=== PATIENT | female | born 1970 | race Two or more races ===

== ENCOUNTER 2024-07-10 14:45 | Outpatient (AMB) | payer BC, SELFPAY ==
--- NOTE | 2024-07-10 14:52 | A.OFFPC_ITS ---
Intake Visit Reasons: INGOT CASTER- Est care Intake Note: New patient visit Facilities Maintenance Manager Required: No Tobacco use date assessed: 07/10/24 Dental Screening Dental Screen Date: 07/10/24 Did you have a dental visit in the last 12 months?: Yes Did you have a dental problem in the last 6 months where you did not have access to dental care?: No Was dental information given to patient?: Patient has dentist HPI HPI Comments History of Present Illness Details 54 year old female with a past medical h istory of migraine, IBS, depression, asthma, neck pain, abnormal tfts presenting for follow up Headaches: on imitrex 100mg prn Chronic pain: Interval improvement with weight loss. Was on mounjaro. Has seen physiatry, vascular and rheumatology IBS: on as needed hyoscyamine Asthma: stable on albuterol as needed anxiety: infrequent xanax use. Uses 1-2 prescriptions per year Preventive Colonoscopy 02/10/2021 Mammogram -sees die sinker Dr Hawkins. she says mammo is UTD ROS CONSTITUTIONAL: Denies weight loss, fever and chills. HEENT: Denies changes in vision and hearing. RESPIRATORY: Denies SOB and cough. CV: Denies palpitations and CP GI: Denies abdominal pain, nausea, vomiting and diarrhea. : Denies dysuria and urinary frequency. MSK: Denies new myalgia and joint pain. SKIN: Denies rash and pruritus. NEUROLOGICAL: Denies headache PSYCHIATRIC: Denies recent changes in mood. PHYSICAL EXAM: GENERAL: Alert and oriented x 3. NAD EYES: EOMI. Anicteric. HENT: Moist mucous membranes. No scleral icterus. No cervical lymphadenopathy. LUNGS: Clear to auscultation bilaterally. CARDIOVASCULAR: Regular rate and rhythm. No murmur. No JVD. ABDOMEN: Soft, non-tender +bs EXTREMITIES: No edema. Non-tender. SKIN: No rashes or lesions. Warm. NEUROLOGIC: No focal neurological deficits. CN II-XII grossly intact PSYCHIATRIC: Cooperative. 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 1. Little interest or pleasure in doing things: not at all 2. Feeling down, depressed, or hopeless: not at all 3. Trouble falling or staying asleep, or sleeping too much: not at all 4. Feeling tired or having little energy: not at all 5. Poor appetite or overeating: not at all 6. Feeling bad about yourself - or that you are a failure or have let yourself or your family down: not at all 7. Trouble concentrating on things, such as reading the newspaper or watching television: not at all 8. Moving or speaking so slowly that other people could have noticed. Or the opposite - being so fidgety or restless that you have been moving around a lot more than usual: not at all 9. Thoughts that you would be better off or of hurting yourself in some way: not at all Total score: 0 Depression Screening Interpretation: Negative Depression Screening Done: Yes 31265 - PHQ-9 Billing: Yes Source: Developed by Drs. Dao Henriquez, Brandi Villarreal, Jorge L Galindo and colleagues, with an educational conrado from [employer]. Thrive Questionnaire Date Thrive assessed: 06/13/24 I am a: Patient What is your living situation today?: I have a steady place to live Within the past 12 months, did the food you bought not last and you didn't have the money to get more?: Never true Within the past 12 months, did you worry whether your food would run out before you got money to buy more?: Never true Do you have trouble paying for medicines?: No Do you have trouble getting transportation to medical appointments?: No Do you have trouble paying your heating and electricity bill?: No Do you have trouble taking care of your child, family member or friend?: No Do you have trouble with day-to-day activities such as bathing, preparing meals, shopping, managing finances, etc.?: No Are you currently unemployed and looking for a job?: No Are you interested in more education?: No Please select the resources that you would like help with: None Currently or been in a relationship where the following occur: No concerns reported THRIVE Score: 0 AUDIT C Alcohol Use Questionnaire (AUDIT-C) 1. How often do you have a drink containing alcohol?: Monthly or less 2. How many drinks containing alcohol do you have on a typical day when you are drinking?: 1 or 2 3. How often do you have six or more drinks on one occasion?: Never Total Score: 1 DUNG-7 AMB Questionnaire DUNG-7 Feeling nervous, anxious, or on edge: 1 = Several days Not being able to stop or control worryin = Several days Worrying too much about different things: 1 = Several days Trouble relaxin = Several days Being so restless that it is hard to sit still: 1 = Several days Becoming easily annoyed or irritable: 0 = Not at all Feeling afraid as if something awful might happen: 0 = Not at all Total DUNG-7 score (0-4 normal; 5-9 mild; 10-14 moderate; 15-21 severe): 5 Source: Developed by Drs. Dao Henriquez, Brandi Villarreal, Jorge L Galindo and colleagues, with an educational conrado from [employer]. 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 Hypothyroidism type: due to Sathish's thyroiditis Irritable bowel syndrome, unspecified type K58.9 Irritable bowel syndrome type: unspecified Migraine without status migrainosus, not intractable, unspecified migraine type G43.909 Migraine type: unspecified Status migrainosus presence: without status migrainosus Intractability: not intractable Additional Codes PHQ-9 - 15746 - PHQ-9 Billing: Yes ([id number]) Assessment & Plan Assessment & Plan (1) Hypothyroid: Code(s): E03.9 - Hypothyroidism, unspecified Category: Medical Qualifiers: Hypothyroidism type: due to Sathish's thyroiditis Qualified Code(s): E06.3 - Autoimmune thyroiditis Plan: cllinically and biochemically euthyroid (2) IBS (irritable bowel syndrome): Code(s): K58.9 - Irritable bowel syndrome, unspecified Category: Medical Qualifiers: Irritable bowel syndrome type: unspecified Qualified Code(s): K58.9 - Irritable bowel syndrome, unspecified Plan: stable on FODMAP, prn levsin (3) Migraine: Code(s): G43.909 - Migraine, unspecified, not intractable, without status migrainosus Category: Medical Qualifiers: Migraine type: unspecified Status migrainosus presence: without status migrainosus Intractability: not intractable Qualified Code(s): G43.909 - Migraine, unspecified, not intractable, without status migrainosus Plan: continues prn imitrex. stable Orders: Orders Complete Blood Count Auto Diff 07/10/24 E03.9 - Hypothyroidism, unspecified, G43.909 - Migraine, unspecified, not intractable, without status migrainosus, K58.9 - Irritable bowel syndrome, unspecified, M32.9 - Systemic lupus erythematosus, unspecified, Z13.0 - Encounter for screening for diseases of the blood and blood-forming organs and certain disorders involving the immune mechanism, Z13.220 - Encounter for screening for lipoid disorders Lipid Panel 07/10/24 E03.9 - Hypothyroidism, unspecified, G43.909 - Migraine, unspecified, not intractable, without status migrainosus, K58.9 - Irritable bowel syndrome, unspecified, M32.9 - Systemic lupus erythematosus, unspecified, Z13.0 - Encounter for screening for diseases of the blood and blood-forming organs and certain disorders involving the immune mechanism, Z13.220 - Encounter for screening for lipoid disorders Hemoglobin A1c 07/10/24 E03.9 - Hypothyroidism, unspecified, G43.909 - Migraine, unspecified, not intractable, without status migrainosus, K58.9 - Irritable bowel syndrome, unspecified, M32.9 - Systemic lupus erythematosus, unspecified, Z13.0 - Encounter for screening for diseases of the blood and blood-forming organs and certain disorders involving the immune mechanism, Z13.220 - Encounter for screening for lipoid disorders Comprehensive Met. Panel 07/10/24 E03.9 - Hypothyroidism, unspecified, G43.909 - Migraine, unspecified, not intractable, without status migrainosus, K58.9 - Irritable bowel syndrome, unspecified, M32.9 - Systemic lupus erythematosus, unspecified, Z13.0 - Encounter for screening for diseases of the blood and blood-forming organs and certain disorders involving the immune mechanism, Z13.220 - Encounter for screening for lipoid disorders TSH reflex Free T4 07/10/24 E03.9 - Hypothyroidism, unspecified, G43.909 - Migraine, unspecified, not intractable, without status migrainosus, K58.9 - Irritable bowel syndrome, unspecified, M32.9 - Systemic lupus erythematosus, unspecified, Z13.0 - Encounter for screening for diseases of the blood and blood-forming organs and certain disorders involving the immune mechanism, Z13.220 - Encounter for screening for lipoid disorders Thyroid Peroxidase Antibodies 07/10/24 E03.9 - Hypothyroidism, unspecified, G43.909 - Migraine, unspecified, not intractable, without status migrainosus, K58.9 - Irritable bowel syndrome, unspecified, M32.9 - Systemic lupus erythematosus, unspecified, Z13.0 - Encounter for screening for diseases of the blood and blood-forming organs and certain disorders involving the immune mechanism, Z13.220 - Encounter for screening for lipoid disorders Medications: New alprazolam 0.5 mg PO BID 60 tabs 0RF 30 days Mounjaro (tirzepatide) 7.5 mg (0.5 mL) subcut QWEEK 6 mL 3RF NS sumatriptan succinate take 1 tab at onset of headache; if no relief, may repeat 1 tab after at least 2 hrs; max = 2 tabs/24 hrs PO 60 tabs 3RF 90 days Mounjaro (tirzepatide) 7.5 mg (0.5 mL) subcut QWEEK 6 mL 3RF NS
--- OUTSIDE RECORDS SUMMARY | 2024-07-10 16:54 | XMS_ITS ---
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 Comment on above: Acute bacterial sinu sitis (Primary Dx); Mild intermittent asthma with exacerbation Start: 10-27-2023 18:15-0400 End: 10-27-2023 19:33-0400 Office/outpatient new sf mdm 15 minutes Sprain of medial collateral ligament of left knee joint Zain Yeboah MD Work Phone: Monica Johnson PA-C Work Phone: [facility] Comment on above: Sprain of medial col lateral ligament of left knee, initial encounter (Primary Dx) N [facility] Immunizations Immunization Date Immunization Notes Care Provider Fa cility 10-08-2023 tetanus toxoid, redu lakeisha diphtheria toxoid, and acellular pertussis vaccine, adsorbed Harriet Goins APRN Work Phone: [facility] 05-06-2015 Influenza, split vir us, trivalent, injectable, contains preservative Harriet Goins APRN Work Phone: [facility] 03-28-2014 Influenza, split vir us, trivalent, injectable, contains preservative Harriet Devitt ANIMAL HUSBANDRY MANAGER Work Phone: [facility] 05-15-2013 Influenza, split vir us, trivalent, injectable, contains preservative Harriet Devitt ANIMAL HUSBANDRY MANAGER Work Phone: [facility] 12-05-2012 typhoid Vi capsular polysaccharide vaccine Harriet Devitt ANIMAL HUSBANDRY MANAGER Work Phone: [facility] 04-29-2011 Influenza, split vir us, trivalent, injectable, contains preservative Harriet Devitt ANIMAL HUSBANDRY MANAGER Work Phone: [facility] 04-29-2011 pneumococcal polysaccharide vaccine, 23 valent Harriet Devitt ANIMAL HUSBANDRY MANAGER Work Phone: [facility] 06-23-2010 tetanus toxoid, redu lakeisha diphtheria toxoid, and acellular pertussis vaccine, adsorbed Harriet Devitt ANIMAL HUSBANDRY MANAGER Work Phone: [facility] 05-05-2010 Influenza, split vir us, trivalent, injectable, contains preservative Harriet Devitt ANIMAL HUSBANDRY MANAGER Work Phone: [facility] 05-28-2008 Influenza, split vir us, trivalent, injectable, contains preservative Harriet Devitt ANIMAL HUSBANDRY MANAGER Work Phone: [facility] 07-08-2007 Influenza, split vir us, trivalent, injectable, contains preservative Harriet Devitt ANIMAL HUSBANDRY MANAGER Work Phone: [facility] 02-07-2004 hepatitis A and hepatitis B vaccine Harriet Devitt ANIMAL HUSBANDRY MANAGER Work Phone: [facility] 12-08-2003 hepatitis A and hepatitis B vaccine Harriet Devitt ANIMAL HUSBANDRY MANAGER Work Phone: [facility] 07-03-2002 hepatitis A and hepatitis B vaccine Harriet Devitt ANIMAL HUSBANDRY MANAGER Work Phone: [facility] 05-29-2002 hepatitis A and hepatitis B vaccine Harriet Devitt ANIMAL HUSBANDRY MANAGER Work Phone: [facility] 05-29-2002 typhoid Vi capsular polysaccharide vaccine Harriet Goins PAYAM Work Phone: [facility] Medications Current Medications Medication Drug Class(es) Dates Sig (Normalized) Sig (Original) [id number] 200 ACTUAT albuterol 0.09 MG/ACTUAT Metered Dose Inhaler (1 source) beta2-Adrenergic Agonist Start: 11-17-2023 Inhale 2 puffs 4 times daily (every 6 hours) as needed for wheezing or shortness of breath. amoxicillin 875 MG / clavulanate 125 MG Oral Tablet (1 source) Penicillin-class Antibacterial, beta Lactamase Inhibitor Start: 11-17-2023 End: 11-24-2023 take 1 tablet by mouth twice daily Take 1 tablet by mouth 2 (two) times a day. cholecalciferol 0.05 MG Oral Tablet (2 sources) Vitamin D Start: 10-27-2023 take 2 tablets by mouth once daily Take 2 tablets (4,000 Units total) by mouth daily. meloxicam 15 MG Oral Tablet (2 sources) Nonsteroidal Anti-inflammatory Drug Start: 10-27-2023 take 1 tablet by mouth once daily Take 1 tablet (15 mg total) by mouth daily. methocarbamol 500 MG Oral Tablet (2 sources) Muscle Relaxant Start: 10-27-2023 take 1 tablet by mouth twice daily as needed for muscle spasms Take 1 tablet (500 mg total) by mouth 2 (two) times a day as needed for muscle spasms. predniSONE 20 MG Oral Tablet (1 source) Corticosteroid Start: 11-17-2023 End: 11-22-2023 take 2 tablets by mouth once daily at mealtime Take 2 tablets (40 mg total) by mouth daily. With food. sumatriptan 25 MG Oral Tablet (2 sources) Serotonin-1b and Serotonin-1d Receptor Agonist take 4 tablets by mouth every two hours as needed Take 100 mg by mouth every 2 (two) hours as needed. 0.5 ML tirzepatide 10 MG/ML Auto-Injector (2 sources) Start: 08-10-2023 Mounjaro 5 MG/0.5ML pen-injector Payers Date Payer Normalized Payer [id number] Plan of Treatment Date Care Activity Detail Author Start: 10-07-2033 DTaP/Tdap/Td Vaccines (3 - Td or Tdap) DTaP/Tdap/Td Vaccines (3 - Td or Tdap) [facility] Start: 02-03-2024 Administration of influenza vaccine Influenza Vaccine [facility] Start: 03-05-2023 COVID-19 Vaccine () COVID-19 Vaccine () [facility] Start: 02-02-2023 Administration of influenza vaccine Influenza Vaccine [facility] Start: 2020 Hzv zoster vacc recombinant adjuvanted im njx Zoster (Shingles) Vaccine (1 of 2) [facility] Start: 2015 Screening for malignant neoplasm of colon Colonoscopy [facility] Start: 2010 Mammography Mammogram [facility] Start: 1991 Microscopic observation [Identifier] in Cervix by Cyto stain Pap Smear (Ages 21-65) [facility] Start: 1989 DTaP/Tdap/Td Vaccines (1 - Tdap) DTaP/Tdap/Td Vaccines (1 - Tdap) [facility] Start: 1989 Hepatitis B Vaccines (1 of 3 - 19+ 3-dose series) Hepatitis B Vaccines (1 of 3 - 19+ 3-dose series) [facility] Start: 1983 HIV Screening HIV Screening [facility] Start: 1970 Hepatitis C screening Hepatitis C Virus Screening [facility] Problems Active Problems Problem Classification Problem Date Last Recorded Documented Date Chronic Condition Indicator Provider Asthma (1 source) Exacerbation of intermittent asthma; Translations: [Mild intermittent asthma with (acute) exacerbation] 11-17-2023 [id number]-[id number] estella Harriet Goins APRN Work Phone: Adjustment disorders (1 source) Adjustment disorder with anxious mood; Translations: [Adjustment disorder with anxiety] 11-17-2023 Chronic Harriet Goins APRN Work Phone: Asthma (1 source) Asthma; Translations: [Unspecified asthma, uncomplicated] 11-17-2023 Chronic Harriet Goins APRN Work Phone: Headache; including migraine (2 sources) Cluster headache; Translations: [Cluster headache syndrome, unspecified, not intractable] 11-17-2023 Chronic Harriet Goins APRN Work Phone: Osteoarthritis (1 source) Arthritis; Translations: [Unspecified osteoarthritis, unspecified site] 11-17-2023 Chronic Harriet Goins APRN Work Phone: Other gastrointestinal disorders (1 source) Irritable bowel syndrome; Translations: [Irritable bowel syndrome without diarrhea] 11-17-2023 Chronic Harriet Goins APRN Work Phone: Other inflammatory condition of skin (1 source) Lupus erythematosus; Translations: [Discoid lupus erythematosus] 11-17-2023 Chronic Harriet Goins APRN Work Phone: Other upper respiratory disease (1 source) Seasonal allergy; Translations: [Other seasonal allergic rhinitis] 11-17-2023 Chronic Harriet Goins APRN Work Phone: Other lower respiratory disease (1 source) H/O: pneumonia; Translations: [Personal history of pneumonia (recurrent)] 11-17-2023 Not applicable Harriet Goins APRN Work Phone: Other screening for suspected conditions (not mental disorders or infectious disease) (1 source) Imaging of biliary tract abnormal; Translations: [Abnormal findings on diagnostic imaging of liver and biliary tract] 11-17-2023 Not applicable Harriet Goins APRN Work Phone: Past or Other Problems Problem Classification Problem Date Last Recorded Documented Date Chronic Condition Indicator Provider Mycoses (1 source) Candidiasis of vagina; Translations: [Acute candidiasis of vulva and vagina] 11-17-2023 Episodic Harriet Goins ANIMAL HUSBANDRY MANAGER Work Phone: Other circulatory disease (1 source) Disorder of cardiovascular system; Translations: [Unspecified disorder of circulatory system] 11-17-2023 Episodic Harriet Goins APRN Work Phone: Other upper respiratory infections (1 source) Acute bacterial sinusitis; Translations: [Acute sinusitis, unspecified] 11-17-2023 Episodic Harriet Goins APRN Work Phone: Sprains and strains (1 source) Sprain of medial collateral ligament of left knee joint; Translations: [Sprain of medial collateral ligament of left knee, initial encounter] 10-27-2023 Episodic Monica Fletcher Johnson PA-C Work Phone: Social History Date Type Detail Facility Start: 1970 Sex Assigned At Not on file [facility] Tobacco smoking stat [facility] Tobacco smoking consumption unknown [facility] Gender identity Not on file [facility] Vital Signs Date Time Vital Sign Value Performing Clinician Facility 11-17-2023 09:55-0400 Body temperature 97.5 [degF] Harriet Goins APRN Work Phone: [facility] 11-17-2023 09:55-0400 BP (Blood pressure) 128/85mm[Hg] Harriet Goins APRN Work Phone: [facility] 11-17-2023 09:55-0400 Heart rate 83 /min Harriet Goins APRN Work Phone: [facility] 11-17-2023 09:55-0400 SaO2% (BldA) [Mass fraction] 96 % Harriet Goins APRN Work Phone: [facility] 10-27-2023 19:11-0400 Body height 165.1 cm Monica Johnson PA-C Work Phone: [facility] 10-27-2023 19:11-0400 Body mass index (BMI) [Ratio] 28.62 kg/m2 Monica Johnson PA-C Work Phone: [facility] 10-27-2023 19:11-0400 Body temperature 97.59 [degF] Monica Johnson PA-C Work Phone: [facility] 10-27-2023 19:11-0400 Body weight 78.02 kg Monica Johnson PA-C Work Phone: [facility] 10-27-2023 19:11-0400 BP (Blood pressure) 163/85mm[Hg] MonicaPPDai PA-C Work Phone: [facility] 10-27-2023 19:11-0400 Heart rate 64 /min MonicaPPDai PA-C Work Phone: [facility] 10-27-2023 19:11-0400 Respiratory rate 16 /min [employer] PA-C Work Phone: [facility] 10-27-2023 19:11-0400 SaO2% (BldA) [Mass fraction] 100 % [employer] PA-C Work Phone: [facility] History of Present illness Narrative 11-17-2023 Harriet Goins APRN - 11/17/2023 10:02 AM EDT Note Date & Type Note Facility 11-17-2023 History of Presen t illness Narrative Assessment & Plan Peggy was seen today for nasal congestion. Diagnoses and all orders for this visit: Acute bacterial sinusitis - amoxicillin-clavulanate (AUGMENTIN) 875-125 MG per tablet; Take 1 tablet by mouth 2 (two) times a day. Mild intermittent asthma with exacerbation - predniSONE (DELTASONE) 20 MG tablet; Take 2 tablets (40 mg total) by mouth daily. With food. - albuterol (PROVENTIL HFA; VENTOLIN HFA) 108 (90 Base) MCG/ACT inhaler; Inhale 2 puffs 4 times daily (every 6 hours) as needed for wheezing or shortness of breath. Medical Decision Making and Data Synthesis: Acute bacterial sinusitis with mild intermittent asthma exacerbation. Augmentin as directed. Prednisone and albuterol as directed. Patient was advised to continue with your nebulizers as needed. Steamy showers, may use [id number]-[id number] decongestant as needed as well. If there is no improvement after 7 days or any new or worsening symptoms please be reevaluated. Communication barriers and lifestyle preferences were addressed with the patient and/or family . The care plan including medications and self-management goals were reviewed to the best of the Patient and/or family's ability. All questions and concerns were answered. Patient and/or family verbalized understanding of the plan of care. Subjective Peggy Brewster is a 53 y.o. female HPI Chief Complaint: congestion and cough Location: head and chest Duration: 10 days, worse in last 5 Context: acute Severity: moderate Other Pertinent History: Patient has a history of sinus infections, she feels like she has a sinus infection at this time. Symptoms started out mild before getting worse in the last 5 days. She has been treating with [id number]-[id number] medications with no significant improvement. She is now experiencing a cough as well as tightness in the chest, she does have a history of asthma, does have an albuterol inhaler which is old, she does have nebulizers which have been helpful, she was able to use those last night and today with some improvement in the chest, but unfortunately the head congestion is continued. She feels a lot of fullness in her face above and below the eyes as well as in the ears. Postnasal drip, throat clearing, and significant fatigue. No fever, body aches, or muscle aches. No rapid breathing or rapid heart rate noted. History reviewed. No pertinent past medical history. History reviewed. No pertinent surgical history. History reviewed. No pertinent family history. Review of Systems: All other systems reviewed and are negative except where documented below: Cardiovascular: No Chest pain Pulmonary: No SOB Gastrointestinal: No Vomiting; No Diarrhea Constitutional: No Fever Objective Vitals: 11/17/23 0955 BP: 128/85 Pulse: 83 Temp: 97.5 ?F (36.4 ?C) SpO2: 96% Vital signs reviewed. Constitutional: Well-appearing, in no apparent respiratory distress. Does not appear toxic Eyes: Conjunctivae Clear, No Icterus Ear, Nose, Mouth, Throat: Bilateral EACs are nonerythemic. Bilateral TMs pearly treviño with good light reflex. External nose is grossly normal to inspection. Nares are congested bilaterally. There is tenderness with palpation over the frontal maxillary sinuses. Oral mucosa is moist and pink. Posterior oropharynx is erythemic, there is postnasal drip visualized. No WEATHER CLERK. Uvula is midline. Neck: Supple, no nuchal signs, No cervical lymphadenopathy, Cardiovascular: Normal S1, S2. No extra heart sounds. Respiratory: Breath sounds clear and equal bilaterally, no wheezes, rales, or rhonchi. Nonproductive cough evident during exam. Gastrointestinal: Soft and No tenderness Skin: Normal for age and race, grossly normal temperature and turgor. No acute rash. Neurologic: Alert and appropriate, no apparent acute deficits. Normal gait Psychiatric: Mood and manner are appropriate. Grooming and personal hygiene are appropriate. No results found for this or any previous visit. Harriet Goins APRN 11/17/23 10:02 AM documented in this encounter [facility] History of Present illness Narrative 10-27-2023 Monica Johnson PA-C - 10/27/2023 7:44 PM EDT Note Date & Type Note Facility 10-27-2023 History of Presen t illness Narrative [address] [facility] [address] [id number] Encounter Date: 10/27/23 Assessment & Plan 1. Sprain of medial collateral ligament of left knee, initial encounter - Amb Referral to Orthopedic Surgery - Vitamin D3 (CHOLECALCIFEROL) 50 MCG (2000 UT) tablet; Take 2 tablets (4,000 Units total) by mouth daily. Dispense: 30 tablet; Refill: 3 - methocarbamol (ROBAXIN) 500 MG tablet; Take 1 tablet (500 mg total) by mouth 2 (two) times a day as needed for muscle spasms. Dispense: 60 tablet; Refill: 0 - meloxicam (MOBIC) 15 MG tablet; Take 1 tablet (15 mg total) by mouth daily. Dispense: 30 tablet; Refill: 0 1. Sprain of medial collateral ligament of left knee, initial encounter - Amb Referral to Orthopedic Surgery - Vitamin D3 (CHOLECALCIFEROL) 50 MCG (2000 UT) tablet; Take 2 tablets (4,000 Units total) by mouth daily. Dispense: 30 tablet; Refill: 3 - methocarbamol (ROBAXIN) 500 MG tablet; Take 1 tablet (500 mg total) by mouth 2 (two) times a day as needed for muscle spasms. Dispense: 60 tablet; Refill: 0 - meloxicam (MOBIC) 15 MG tablet; Take 1 tablet (15 mg total) by mouth daily. Dispense: 30 tablet; Refill: 0 Impression: Left knee MCL sprain Plan: Above listed pathology discussed with patient in detail. Questions asked and answered. Recommended prescriptions as above. Hinged knee brace provided for support stability and comfort. Patient is referred to [facility] for radiographic workup, evaluation and definitive treatment plan. X-ray not available in center at this time. Referral and Follow-up Referral: [facility]-Dr. Clark Timing: Patient to call tomorrow for an appointment in the next week If an orthopedic consultation is recommended or a follow-up appointment has been made, the patient may call the referral practice for more immediate care if issues arise prior to this appointment. Alternatively, if the referral practice is unable to accommodate a more urgent concern the patient is encouraged to re-visit the urgent care for reassessment. History of Present Illness: Peggy Brewster is a 53 y.o. female who presents today in the Urgent Care Clinic for evaluation of Chief Complaint Patient presents with Other Patient fell last and has injury to left leg around knee area. Can bear weight but discomfort; pain 8/10 with walking. . Patient describes onset of symptoms as: Last while on a cruise. The mechanism of injury is reported as: Patient states she was dancing on a pool deck, slipped and fell twisting her left knee. She describes a valgus type injury. She had immediate discomfort and pain with weightbearing. Another individual helped her to stand. Since then she has had pain and swelling about the medial aspect of the knee. Pain aggravated by weightbearing activities and stairs. She denies numbness or tingling. Denies calf pain or shortness of breath. Denies previous difficulty with her left knee. Has noted swelling. Has tried lidocaine cream and ice which has helped her symptoms somewhat. This is her first medical evaluation of her injury. ROS: Denies fevers, chills, sweats. Past Medical History History reviewed. No pertinent past medical history. History reviewed. No pertinent surgical history. History reviewed. No pertinent family history. Medication List Current Outpatient Medications: Mounjaro 5 MG/0.5ML pen-injector, , Disp: , Rfl: SUMAtriptan (IMITREX) 25 MG tablet, Take 100 mg by mouth every 2 (two) hours as needed., Disp: , Rfl: meloxicam (MOBIC) 15 MG tablet, Take 1 tablet (15 mg total) by mouth daily., Disp: 30 tablet, Rfl: 0 methocarbamol (ROBAXIN) 500 MG tablet, Take 1 tablet (500 mg total) by mouth 2 (two) times a day as needed for muscle spasms., Disp: 60 tablet, Rfl: 0 Vitamin D3 (CHOLECALCIFEROL) 50 MCG (2000 UT) tablet, Take 2 tablets (4,000 Units total) by mouth daily., Disp: 30 tablet, Rfl: 3 Allergies No Known Allergies Physical Exam Patient is a well-developed female in no acute distress. Alert & oriented x 3. Mood and affect appropriate. Gait antalgic to the left. Vitals: 10/27/23 1911 BP: (!) 163/85 Pulse: 64 Resp: 16 Temp: 97.6 ?F (36.4 ?C) TempSrc: Oral SpO2: 100% Weight: 78 kg (172 lb) Height: 1.651 m (5' 5 ) Ortho Exam Examination of the left knee reveals minimal intra-articular effusion. No erythema or increased warmth. Ecchymosis noted about the medial aspect of the knee. Mild valgus alignment appreciated on the left with neutral alignment of the knee noted on the right. Tenderness to palpation is found chiefly about the course of the MCL and posterior medial Andrew joint line. Patient does have mild laxity with valgus stress testing. She has no tenderness to palpation about the patella or lateral Andrew joint line. Extensor mechanism intact. No posterior knee pain. No instability with varus or AP stress. Negative Lubna's. Knee range of motion supple and nonirritable with no signs of infection. 1+ retropatellar crepitus noted. Calf supple and nontender with no evidence of DVT. Mild calf and pedal edema noted. Neuro vastly intact with intact DP pulses and sensation to light touch. 5 out of 5 dorsiflexion and plantarflexion strength. Imaging / Data Review No x-rays were ordered and obtained in Center today No results found. Procedure(s) Hinged knee brace provided for support, stability and comfort may remove for showers and sleeping. Patient to wear brace while ambulatory. Monica Johnson PA-C 10/27/23 7:44 PM documented in this encounter [facility] Evaluation note Note Date & Type Note Facility Evaluation note Diagnosis Acute bacterial sinusitis- Primary Acute sinusitis, unspecified Mild intermittent asthma with exacerbation Unspecified asthma, with exacerbation documented in this encounter [facility] Evaluation note Note Date & Type Note Facility Evaluation note Diagnosis Sprain of medial collateral ligament of left knee, initial encounter- Primary documented in this encounter [facility] Reason for visit Narrative Note Date & Type Note Facility Reason for visit Narrative Reason Comments Nasal Congestion Sore throat, cough f or 5 days [facility] Reason for visit Narrative Note Date & Type Note Facility Reason for visit Narrative Reason Comments Other Patient fell last and has injury to left leg around knee area. Can bear weight but discomfort; pain /10 with walking. [facility] Reason for Referral Specialty Diagnoses / Procedures Referred By Yany guallpa Referred To Contact Surgery, Orthopedic Diagnoses Sprain of medial collateral ligament of left knee, initial encounter Monica Johnson PA-C [address] [place] [address] Kevan Clark MD [address] [place] [id number] Referral ID Status Reason Start Date Expiration Date Visits Requested Visits Authorized [id number] Authorized Specialty Services Required 10/27/2023 10/27/2024 1 1 Additional Source Comments Care Teams (unrecognized sec tion and content) Hot Press Operator Relationship Specialty Start Date End Date Enid Flannery MD [address] [place] [address] PCP - General Internal Medicine 10/27/23 Hot Press Operator Relationship Specialty Start Date End Date Enid Flannery MD [address] [place] [address] PCP - General Internal Medicine 10/27/23 This clinical document has been generated using [employer] software that has been certified by the Office of the National Coordinator for Health Information Technology (ONC 15.99.04.3023.Diam.[id number]) and the National Committee for Motion Picture Projectionist Apprentice (NCQA, as an eMeasure certified technology). FOR RECORDS PERTAINING TO PATIENTS WHO ARE OR HAVE BEEN ENROLLED IN A CHEMICAL DEPENDENCY/SUBSTANCEABUSE PROGRAM, SOME INFORMATION MAY BE OMITTED. This clinical summary was aggregated from multiple sources. Caution should be exercised in using it in the provision of clinical care. This summary normalizes information from multiple sources, and as a consequence, information in this document may materially change the coding, format and clinical context of patient data. In addition, data may be omitted in some cases. CLINICAL DECISIONS SHOULD BE BASED ON THE PRIMARY CLINICAL RECORDS. [employer] provides no warranty or guarantee of the accuracy or completeness of information in this document.The following information is based on time limited clinical information
--- OUTSIDE RECORDS SUMMARY | 2024-07-10 16:54 | XMS_ITS ---
Author Name [facility] Organization Unknown History of Medication Use Medication Directions Dispensed Refills Start Date End Date Stat us albuterol (PROVENTIL HFA; VENTOLIN HFA) 108 (90 Base) MCG/ACT inhaler Inhale 2 puffs 4 times daily (every 6 hours) as needed for wheezing or shortness of breath. 11/19/2023 active predniSONE (DELTASONE) 20 MG tablet Take 2 tablets (40 mg total) by mouth daily. With food. 11/19/2023 active amoxicillin-clavulanat e (AUGMENTIN) 875-125 MG per tablet Take 1 tablet by mouth 2 (two) times a day. 11/19/2023 active Vitamin D3 (CHOLECALCIFEROL) 50 MCG (2000 UT) tablet Take 2 tablets (4,000 Units total) by mouth daily. 10/31/2023 active methocarbamol (ROBAXIN) 500 MG tablet Take 1 tablet (500 mg total) by mouth 2 (two) times a day as needed for muscle spasms. 10/31/2023 active Mounjaro 5 MG/0.5ML pen-injector 10/31/2023 active meloxicam (MOBIC) 15 MG tablet Take 1 tablet (15 mg total) by mouth daily. 10/31/2023 active SUMAtriptan (IMITREX) 25 MG tablet Take 100 mg by mouth every 2 (two) hours as needed. 10/31/2023 active Problems Problem Status Onset Date Problem Type Date of Resolution Source Abnormal gall bladder diagnostic imaging active 2023-11-17 ProblemAct [facility] Arthritis active 2023-11-17 ProblemAct [facility] Circulation problem active 2023-11-17 ProblemAct [facility] Mild intermittent asthma with exacerbation active EncounterDiagnosisAct [facility] Cluster headaches active 2023-11-17 ProblemAct [facility] Vaginal candidiasis active 2023-11-17 ProblemAct [facility] Acute bacterial sinusitis active EncounterDiagnosisAct [facility] Adjustment disorder with anxious mood active 2023-11-17 ProblemAct [facility] Lupus erythematosus active 2023-11-17 ProblemAct [facility] Migraine headache active 2023-11-17 ProblemAct [facility] Irritable bowel syndrome active 2011-04-29 ProblemAct [facility] History of pneumonia active 2023-11-17 ProblemAct [facility] Asthma active 2023-11-17 ProblemAct [facility] Seasonal allergies active 2023-11-17 ProblemAct [facility] Immunizations Vaccine Date Source Lot Number Status Influenza Inactivated/Split Preservative Free IM 04/29/2011 [facility] [id number] completed Influenza Inactivated/Split Preservative Free IM 05/05/2010 [facility] [id number] completed Typhoid Inactivated 12/05/2012 [facility] [id number] compl eted Influenza Inactivated/Split Preservative Free IM 05/15/2013 [facility] [id number] completed Influenza Inactivated/Split Preservative Free IM 05/06/2015 [facility] [id number] completed Hep A / Hep B 05/29/2002 [facility] [id number] completed Hep A / Hep B 02/07/2004 [facility] [id number] completed Influenza Inactivated/Split Preservative Free IM 03/28/2014 [facility] [id number] completed Influenza Inactivated/Split Preservative Free IM 07/08/2007 [facility] [id number] completed Influenza Inactivated/Split Preservative Free IM 05/28/2008 [facility] [id number] completed Pneumococcal Polysaccharide 23-Valent 04/29/2011 [facility] [id number] completed Tdap 10/08/2023 [facility] [id number] completed Hep A / Hep B 12/08/2003 [facility] UNK completed Tdap 06/23/2010 [facility] [id number] completed Hep A / Hep B 07/03/2002 [facility] [id number] completed Typhoid Inactivated 05/29/2002 [facility] [id number] compl eted
== END 2024-07-10 15:27 | disposition home or self-care (01) ==
PROVIDERS: PCP Internal Medicine; Visit Provider Internal Medicine
DX: E06.3 Autoimmune thyroiditis (principal); K58.9 Irritable bowel syndrome, unspecified; G43.909 Migraine, unspecified, not intractable, without status migrainosus

== ENCOUNTER → 2024-07-10 14:45 | Outpatient (BNVA) | payer BC, SELFPAY | PROVIDERS: PCP Internal Medicine; Visit Provider Internal Medicine | DX: E06.3 Autoimmune thyroiditis (principal); K58.9 Irritable bowel syndrome, unspecified; G43.909 Migraine, unspecified, not intractable, without status migrainosus | CPT/HCPCS: 96127 ==

== ENCOUNTER 2024-07-10 15:46 | Outpatient (REF) | payer BC, SELFPAY ==
[2024-07-10 17:42] LABS: MANUAL DIFF FLAG NO
[2024-07-10 17:55] LABS: Basophils Absolute Auto 0.1 X10*3/uL (0.0-0.2); Basophils Percent Auto 1.2 % (0-2); Eosinophils Absolute Auto 0.1 X10*3/uL (0.0-0.4); Hematocrit 39.8 % (37.0-47.0); Hemoglobin 13.1 g/dl (12.0-16.0); Imm Gran Abs Auto 0.01 X10*3/uL (0.00-0.03); Imm Gran Pct Auto 0.2 % (0.0-0.4); Lymphocytes Absolute Auto 2.2 X10*3/uL (1.2-4.9); Lymphocytes Percent Auto 44.1 % (20-40); Mean Corpuscular HGB Conc 32.9 g/dl (31.0-35.0); Mean Corpuscular Hemoglobin 29.9 pg (27.0-33.0); Mean Corpuscular Volume 90.9 fL (80.0-98.0); Mean Platelet Volume 11.4 fL (9.4-12.3); Monocytes Absolute Auto 0.4 X10*3/uL (0.1-1.2); Monocytes Percent Auto 7.3 % (2-11); Neutrophils Absolute Auto 2.3 x10*3/uL (2.0-8.3); Neutrophils Percent Auto 46.2 % (45-73); Platelet Count 256 X10*3/uL (160-400); Red Blood Count 4.38 X10*6/uL (4.20-5.50); Red Cell Distribution Width 12.1 % (11.0-16.0); White Blood Count 5.1 X10*3/uL (4.8-10.8)
[2024-07-10 17:59] LABS: Estimated Average Glucose 100 mg/dL; Hemoglobin A1C 112.8282 umol/L; Hemoglobin A1c % 5.1 % (<6.0); Total Hemoglobin (HGBA1C) 3460.5478 umol/L
[2024-07-10 18:18] LABS: Alanine Aminotransferase 22 U/L (0-31); Albumin Level 4.2 g/dL (3.5-5.0); Alkaline Phosphatase 63 U/L (39-117); Anion Gap 9 (12-20); Aspartate Amino Transferase 25 U/L (5-31); Bilirubin Total 0.4 mg/dL (0.0-1.0); Blood Urea Nitrogen 7 mg/dL (9-16); Calcium 8.5 mg/dL (8.4-10.2); Carbon Dioxide 30 mmol/L (22-29); Chloride 105 mmol/L (96-108); Cholesterol 149 mg/dL (<200); Estimated Glomerular Filt Rate > 60; Glucose Random 88 mg/dL (60-115); HDL Cholesterol 56 mg/dL (>40); LDL Cholesterol Calculated 79 mg/dL (<100); Potassium 3.3 mmol/L (3.3-5.1); Sodium 141 mmol/L (135-145); Total Protein 7.4 g/dL (6.5-8.0); Triglycerides 72 mg/dL (<150)
[2024-07-11 10:49] LABS: Thyroid Peroxidase Antibodies 7 IU/mL (<9)
== END 2024-07-10 15:47 | disposition home or self-care (01) ==
LOC: HO.WFDLDS 15:46
PROVIDERS: Visit Provider Internal Medicine
DX: Z13.220 Encounter for screening for lipoid disorders (principal); E03.9 Hypothyroidism, unspecified; M32.9 Systemic lupus erythematosus, unspecified; G43.909 Migraine, unspecified, not intractable, without status migrainosus; K58.9 Irritable bowel syndrome, unspecified; Z13.0 Encounter for screening for diseases of the blood and blood-forming organs and certain disorders involving the immune mechanism; Z13.1 Encounter for screening for diabetes mellitus
CPT/HCPCS: 36415; 80053; 80061; 83036; 84443; 85025; 86376

== ENCOUNTER 2024-09-18 09:20 | Outpatient (AMB) | payer BC, SELFPAY ==
--- NOTE | 2024-09-18 09:37 | MHC.PC.OV ---
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 Her insurance stopped approving mounjaro which had helped her lose weight and keep it off. She has gained weight despite dieting and exercise for the last three months. Headaches: on imitrex 100mg prn Chronic pain: There had been interval improvement with weight loss. Has seen physiatry, vascular and rheumatology IBS: on as needed hyoscyamine Asthma: stable on albuterol as needed anxiety: infrequent xanax use. Uses 1-2 prescriptions per year Preventive Colonoscopy 02/10/2021 Mammogram -sees an employee sponsor or advocate and Dr Hawkins. she says mammo is UTD ROS see HPI PHYSICAL EXAM: GENERAL: Alert and oriented x 3. NAD EYES: EOMI. Anicteric. HENT: Moist mucous membranes. No scleral icterus. No cervical lymphadenopathy. LUNGS: Clear to auscultation bilaterally. CARDIOVASCULAR: Regular rate and rhythm. No murmur. No JVD. ABDOMEN: Soft, non-tender +bs EXTREMITIES: No edema. Non-tender. SKIN: No rashes or lesions. Warm. NEUROLOGIC: No focal neurological deficits. CN II-XII grossly intact PSYCHIATRIC: Cooperative. 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 Current occupational exposures/hazards: No Cognitive needs: No Hearing needs: No Vision needs: Yes (glasses) Questionnaire Thrive Questionnaire Date Thrive assessed: 07/10/24 I am a: Patient What is your living situation today?: I have a steady place to live Within the past 12 months, did the food you bought not last and you didn't have the money to get more?: Never true Within the past 12 months, did you worry whether your food would run out before you got money to buy more?: Never true Do you have trouble paying for medicines?: No Do you have trouble getting transportation to medical appointments?: No Do you have trouble paying your heating and electricity bill?: No Do you have trouble taking care of your child, family member or friend?: No Do you have trouble with day-to-day activities such as bathing, preparing meals, shopping, managing finances, etc.?: No Are you currently unemployed and looking for a job?: No Are you interested in more education?: No Please select the resources that you would like help with: None Currently or been in a relationship where the following occur: No concerns reported THRIVE Score: 0 Physical exam (Primary Care) Vital Signs: Last Vital Signs Pulse 74 09/18/24 09:41 Resp 14 09/18/24 09:41 BP 128/86 09/18/24 09:41 Pulse Ox 98 09/18/24 09:41 Oxygen Delivery Method Room Air 09/18/24 09:41 BMI result Body Mass Index 29.2 Tobacco/Smoking Status: Tobacco use Status Tobacco use date assessed 09/18/24 09/18/24 09:47 Patient Tobacco Use Status Former Tobacco user 09/18/24 09:50 e-Cigarette/Vaping Use Never Used 09/18/24 09:50 Thrive Assessment: Date of Thrive Assessment Date Thrive assessed 07/10/24 09/18/24 09:38 Currently or been in a relationship where the following occur: No concerns reported Coding Level of Care Code Est Pt Level 4 (46981) Diagnoses Overweight (BMI 25.0-29.9) E66.3 Snoring R06.83 Assessment & Plan Assessment & Plan (1) Overweight (BMI 25.0-29.9): Code(s): E66.3 - Overweight Category: Medical Plan: She was feeling better and weight, sleep & depression were much improved on GLP. Failed exercise and weight loss Will order zepbound and she will check insurance coverage (2) Snoring: Code(s): R06.83 - Snoring Category: Medical Plan: sleep study ordered. Orders: Orders RT home sleep study Today E66.3 - Overweight, R06.83 - Snoring Medications: New Zepbound (tirzepatide (weight loss)) for 4 weeks 2.5 mg (0.5 mL) subcut QWEEK 2 mL 0RF NS E66.3 - Overweight
[2024-09-18 09:41] VITALS: BP 128/86; PULSE 74; RESP 14; O2SAT 98; BMI 29.2
--- OUTSIDE RECORDS SUMMARY | 2024-09-18 10:07 | XMS_ITS | Clinical Summary ---
Author Organization [facility] Address [address] [place] [address] Care Team Providers Care Customer Success Intern Name Role Phone Unavailable Primary Care Provider Unavailabl e Allergies Active Allergy Reactions Criticality Noted Date Comments Sulfa Antibiotics 07/18/2018 Medications Medication Sig Dispensed Refills Start Date End Date Status SUMAtriptan (IMITREX) 25 MG tablet Take 100 mg by mouth every 2 (two) hours as needed for migraine. 0 Active albuterol (PROVENTIL HFA;VENTOLIN HFA) 108 (90 Base) MCG/ACT inhaler Inhale 2 puffs into the lungs every 6 (six) hours as needed for wheezing. 1 Inhaler 0 07/18/2018 Active Social History Tobacco Use Types Packs/Day Years Used Date Smoking Tobacco: Never Assessed Sex and Gender Information Value Date Recorded Sex Assigned at Not on file Gender Identity Not on file Sexual Orientation Not on file Last Filed Vital Signs Vital Sign Reading Time Taken Comments Blood Pressure 128/80 07/18/2018 12:30 PM EST Pulse 70 07/18/2018 12:30 PM EST Temperature 36.4 ??C (97.6 ??F) 07/18/2018 12:[address] Respiratory Rate - - Oxygen Saturation 99% 07/18/2018 12:30 PM EST Inhaled Oxygen Concentration - - Weight - - Height - - Body Mass Index - - Plan of Treatment Health Maintenance Due Date Last Done Comments Hepatitis B Vaccines (1 of 3 - 3-dose series) 1970 Hepatitis C Screening 1970 COVID-19 Vaccine (#1) 1970 Depression Screening 1982 Preventative Health Evaluation 1988 DTap / Tdap / Td (1 - Tdap) 1989 Cervical Cancer Screening (P ap Smear) 1991 Colon Cancer Screening (Colonoscopy) 2015 Breast Cancer Screening (Mammogram) 2020 Shingrix-Zoster Vaccine (1 of 2) 2020 Influenza Vaccine (#1) 2024 Pneumococcal Vaccine Aged Out No long er eligible based on patient's age to complete this topic RSV Ped < 20 months Aged Out No longe r eligible based on patient's age to complete this topic Peggy Brewster Personal/Family Self 1970 [address] [place] [id number]
--- OUTSIDE RECORDS SUMMARY | 2024-09-18 10:07 | XMS_ITS ---
Author Organization [facility] Address [address] [place] [address] Care Team Providers Care Antique Finisher Name Role Phone Harmony ARELLANO MD, YAYA Primary Care Provider UnavailBRAYAN Nunez Unavailable [phone] Allergies Allergen (clinical drug ingredient) Drug/Non Drug Allergy documented on EMR Reaction Allergy Type Onset Date Status Sulfur unknown, but family has anaphylaxis Drug Allergy Active Adhesive rash Allergy Active REASON FOR VISIT Annual DATA MANAGEMENT CONSULTANT Physical Medications Medication SIG (Take, Route, Frequency, Duration) Notes Start Date End Date Status Elderberry 575 MG/5ML as directed Orally Active Hyoscyamine as needed for IBS Active Mounjaro 7.5 MG/0.5ML Subcutaneous for 84 Days Active Imitrex 100 MG Orally PRN Acti ve Mirena Inserted 09/13/20 Act sunni Social History Tobacco Use: Social History Observation Description Date Details (start date - stop date) Former Smoker NA - NA Tobacco Use/Smoking Question Answer Notes Are you a former smoker How long has it been since you last smoked? > 10 years Tobacco use other than smoking: Question Answer Notes Are you an other tobacco user? No AUDIT-C (Standard) Question Answer Notes Did you have a drink contain ing alcohol in the past year? Yes How often did you have six o r more drinks on one occasion in the past year? Never (0 point) How many drinks did you have on a typical day when you were drinking in the past year? 1 or 2 drinks (0 point) How often did you have a dri nk containing alcohol in the past year? 2 to 3 times a week (3 points) Points 3 Interpretation Positive Vital Signs Temperature 97.1 degrees Fahrenheit 01/27/20 24 Blood pressure systolic 122 mm Hg 01/27/20 24 Blood pressure diastolic 80 mm Hg 024 Height 65 in 01/27/2024 Weight 176 lbs 01/27/2024 BMI 29.28 kg/m2 01/27/2024 Encounters Encounter Location Date Provider Diagnosis Total [address] [place] [address] 01/27/2024 BRAYAN SHELDON Encounter for gynecological examination (general) (routine) without abnormal findings Z01.419 ; Encounter for screening mammogram for malignant neoplasm of breast Z12.31 and Presence of (intrauterine) contraceptive device Z97.5 Assessments Encounter Date Diagnosis (ICD Code) Assessment Notes Treatment Notes Treatment Clinical Notes Section Notes 01/27/2024 Encounter for gynecological examination (general) (routine) without [...] to keep colon screening up to date. 01/27/2024 Encounter for screening mammogram for malignant neoplasm of breast (ICD-10 - Z12.31) 01/27/2024 Presence of (intrauterine) contraceptive device (ICD-10 - Z97.5) Continue Mirena until 09/2028 or menopause Plan Of Treatment Treatment Notes Assessment Notes [...] to keep colon screening up to date. Presence of (intrauterine) c ontraceptive device Continue Mirena until 09/2028 or menopaus e Pending Test Test Name Order Date MM Digital Screening Mammogram 3D 2023 Next Appt Details Follow Up: 1 Year, Reason: Y early Customer Solutions Coordinator Exam Provider Name:BRAYAN Singh, 02/01/2025 01:00:00 PM, [address], [address], [place], [address], Progress Notes * JESUSITA REIDOB:1970 (53 yo F)Acc No.[id number]:01/27/2024 PROGRESS NOTES Patient:?PEGGY REID Provider:?BRAYAN SHELDON MD :1970???Age:53 Y???Sex:Female D ate:01/27/2024 Address:[address] [place], [place] [id number] Pcp:YAYA ARELLANO MD Subjective: * Chief Complaints: * ???Annual DATA MANAGEMENT CONSULTANT Physical * HPI: ???Constitutional:?Peggy is a 53yo with amenorrhea on Mirena 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 ?She has been in state of good health since her last exam. She has the following concerns: none ?She has received the [employer] Covid-19 vaccine. ?Relationship status: for 35 years. She is sexually active. Sexual partner(s): male. She does not wish to have STI testing. ?Menses: absent ?Contraception: Mirena - inserted 09/2020 ?She does report vaginal dryness - she doesn't use lubricant. She does not have hot flashes/night sweats. ?The patient has not had an abnormal pap smear within the last 5 years. Her most recent pap smear was 09/01/21 - ASCUS, Neg HR HPV. Next due for cotesting in 2024. ?She has not been diagnosed with breast cancer. She does have a family history of breast cancer - maternal cousin. Her last mammogram was 06/14/23. She has heterogeneously dense breast tissue. ?She does not have a family history of colon cancer. She a has had a colonoscopy. The last colonoscopy was 02/05/2021. Next due in 2030. ?The patient does not exercise. Ernestina is due to have a baby about 04/04/24. Decided not to determine gender before . * ROS:?Annual Customer Solutions Coordinator Exam ROS:?Bowel habit changes?denies.?Bladder symptoms?denies.?Vaginal discharge, unusual?denies.?Vaginal itch or odor?denies.?weight or appetite changes?denies.?Chest pains, SOB?denies.?depression?denies.?Breast:?Denies?Breast lump.?Denies?Nipple discharge.?Hematology:?Denies?Swollen glands.?Skin:?Patient denies?changing moles.?Psychiatric:?Denies?Anxiety.? * Medical History:? * Customer Solutions Coordinator History:?/ Para?2/2.?Sexual activity?currently sexually active, with men.?Last Pap Smear:?09/01/21 ASCUS, NEG HRHPV, 06/22/2016 - NIL, neg HR HPV.?Mammogram:?06/14/23 50-75% density, 2020 @ [place], 03/20/19.?Abnormal Pap Smear:?no history of abnormal pap smears.?LMP and menses?none with Mirena.?History of STD's:?none.? Control:?Mirena intrauterine device.?Menarche?13.?Colonoscopy?12/2020 - due in 10 yrs.?*Hep B Vac?2002.? * OB History:?Total pregnancies?2.?Total living children?2.?NVD?2.? # 1:?normal spontaneous vaginal delivery (), 11/23/1990, Mauri, 6lb 11.75oz, no complications.? # 2:?normal spontaneous vaginal delivery (), 03/23/1992, Ernestina, 7lb 11.75oz, no complications.? * Surgical History:?Cholecyste ctomy * Hospitalization/Major Diagno stic Procedure:?childbirth * Family History:?Mother: dece ased 72 yrs, Dementia, DM.?Father: 50 yrs, killed in motorcycle accident.?Daughter Ernestina: alive 32 yrs.?Son Mauri: alive 33 yrs.? Brother - Chandrakant - 04/12/74 - hypercholesterolemia, not in contact Maternal cousin - breast cancer at age 47ish No family history of colon, uterine or ovarian cancers. * Social History:?Tobacco Use:?Tobacco Use/Smoking?Are you a?former smoker ?How long has it been since you last smoked??> 10 years ?Tobacco use other than smoking?Are you an other tobacco user??No ???Drugs/Alcohol:?Drugs?Have you used drugs other than those for medical reasons in the past 12 months??No ???Miscellaneous:?Children: yes, 2. ?Domestic violence: no. ?Exercise: no. ?Home smoke detector use: yes, smoke detectors, carbon monoxide detector. ?Housing: owns a home. ?Living with: spouse. ?Marital status: , Hunter. 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 ?Pets: dogs: 1 - chimodestoahua (denisse). ?Sexual abuse: no. ?Sexually active: yes, monogamous relationship. ?Travel outside of the [place]: yes, [place], [place], [place], [place], [place], [place], [place], [facility], [facility]. ?Verbal abuse: no. ???Drug/Alcohol:?AUDIT-C (Standard)?Did you have a drink containing alcohol in the past year??Yes ?How often did you have six or more drinks on one occasion in the past year??Never (0 point) ?How many drinks did you have on a typical day when you were drinking in the past year??1 or 2 drinks (0 point) ?How often did you have a drink containing alcohol in the past year??2 to 3 times a week (3 points) ?Points?3 ?Interpretation?Positive * Medications:?TakingElderberr y 575 MG/5ML Syrup as directed Orally Imitrex 100 MG Tablet Orally PRN Mirena , Notes to Pharmacist: Inserted 09/13/20Hyoscyamine , Notes to Pharmacist: as needed for IBSMounjaro 7.5 MG/0.5ML Solution Pen-injector Subcutaneous Medication List reviewed and reconciled with the patientTaking Elderberry 575 MG/5ML Syrup as directed Orally Taking Imitrex 100 MG Tablet Orally PRN Taking Mirena , Notes to Pharmacist: Inserted 09/13/20Taking Hyoscyamine , Notes to Pharmacist: as needed for IBSTaking Mounjaro 7.5 MG/0.5ML Solution Pen- injector Subcutaneous Medication List reviewed and reconciled with the patient * Allergies:?Sulfur: unknown, but family has anaphylaxisAdhesive: verito[Allergies Verified] Objective: * Vitals:?Ht: 65 in, Wt:176lbs , BMI:29.28Index, BP:122/80mm Hg, Temp:97.1F. * Examination: ???General Examination: ?GENERAL APPEARANCE:?in no acute distress, well developed, well nourished, recreational assistant present in room.?HEAD:?normocephalic, atraumatic.?NECK/THYROID:?neck supple, full range of motion, thyroid normal.?LYMPH NODES:?no axillary or supraclavicular adenopathy.?SKIN:? normal, good turgor, no rashes, no suspicious lesions.?BREASTS:? normal, no dimpling, no discharge, no drainage, no masses palpable bilaterally, nontender.?ABDOMEN:? soft, non-tender, non distended without masses or hepatosplenomegaly.?RECTAL:? normal tone, no masses palpable.?BACK:? no costovertebral angle tenderness.?FEMALE GENITOURINARY:?Vulva without lesions or masses, vagina pink without abnormal discharge, lesions or masses, cervix appears normal and is not tender to palpation, IUD threads seen, uterus is normal size, mobile, nontender and anteverted, ovaries are not palpable.?NEUROLOGIC:? alert and oriented, gait normal.?PSYCH:? alert, oriented, cognitive function intact, cooperative with exam, good eye contact, mood/affect full range, speech clear.? Assessment: * Assessment: 1.?Encounter for gynecologic al examination (general) (routine) without abnormal findings - Z01.419 (Primary)???2.?Encounter for screening mammogram for malignant neoplasm of breast - Z12.31???3.?Presence of (intrauterine) contraceptive device - Z97.5??? Plan: * Treatment: 2.?Encounter for screening m ammogram for malignant neoplasm of breast?Imaging: MM Digital Screening Mammogram 3D 3.?Presence of (intrauterine ) contraceptive device? Notes: Continue Mirena until 09/2028 or menopause?? * Procedure Codes:? * Preventive Medicine:?Personal lubricants: [place], [place] Silk, Aloe Cadabra, coconut oil ~~~~~~~~~~~~~ STRENGTH TRAINING ~~~~~~~~~~~~~ Anyone, at any fitness level, can and should add strength training to their routine. Strength training is an important part of an overall fitness program, mainly because lean muscle mass naturally diminishes with age. You'll increase the percentage of fat in your body if you don't do anything to replace the lean muscle you lose over time. Strength training can help you preserve and enhance your muscle mass (at any age!), develop strong bones and reduce the risk of osteoporosis, manage or lose weight and increase your metabolism to help you burn more calories. It will also improve your ability to do everyday activities and reduce symptoms of chronic conditions such as arthritis, back pain, obesity, heart disease and diabetes. Some research suggests that regular strength training may help improve thinking and learning skills. Don't be intimidated. You can strength train at home or in the gym, and you have plenty of options. You can rely on your body weight and do many exercises with little or no equipment, like pushups, pullups, planks and leg squats. Or you can go pro and choose to go with resistance tubing (a lightweight tubing that provides resistance when stretched), free weights like barbells and dumbbells, or weight machines at the gym. ~~~~~~~~~~~~~~~~~~~~~~~~~~~~~~~~~~~~~~~~~~~ SARCOPENIA AND THE IMPORTANCE OF STRENGTH TRAINING EXERCISE ~~~~~~~~~~~~~~~~~~~~~~~~~~~~~~~~~~~~~~~~~~~ What is sarcopenia? ~~~~~~~~~~~~ Sarcopenia refers to the process of losing skeletal muscle mass and strength. 'Sarco' is the Scottish word referring to flesh, and 'penia' means a reduction in amount. Thus, the word describes a progressive weakening of the body caused by a 'change in body compensation in favor of fat and at the expense of muscle.' Everyone, beginning around age 25, starts to lose muscle mass, though the actual symptoms of this loss do not usually begin showing up until around the age of 40 or so. The process begins really picking up speed after the age of 65. In fact, around the age of 40, most women will lose almost a half-pound of muscle every year and replace it with fat. The result of this gradual loss of muscle is an insidious weakening of the body, loss of balance, loss of confidence upon walking, and a reduced ability to recover from near falls. As we lose strength, we become more inactive. This makes sense, because if we have less muscle, it takes much more effort to move, and we fatigue more easily. But also, with loss of strength comes loss of balance and stability. The fear of falling keeps many people sedentary, and a sedentary lifestyle opens the door for chronic illness. ~~~~~~~~~~~~~~ Take back your muscle ~~~~~~~~~~~~~~ And now for great news: you can delay sarcopenia and even reverse it. How? By lifting weights. Even though you cannot grow new muscles cells to replace the ones you have already lost, you can develop the ones that you have left. In fact, you can become stronger than you ever have in your life by simply beginning a strength training program. No matter how old you are, it is not too late to start. Even patients in nursing homes have seen transformation. After strength training, bedridden patients were able to begin walking with walkers, walker-dependent patients graduated to canes, and so on. And no matter how young you are, it is not too early to start! By starting early, you can significantly delay the effects of sarcopenia. As you begin lifting weights, you will notice a transformation in your body. You will have more energy, you will perform everyday tasks with noticeably more ease and your clothes will begin sagging on you, because you will be building muscle and burning up the fat deposits. You will have greater balance and more confidence. And perhaps best of all is the insurance policy you pay premiums on every time you choose to lift, because you are laying a strong, solid foundation for your later years. You are laying up health, independence and the ability to live well, not just long. DON'T LET ANOTHER DAY GO BY THAT YOU ARE LOSING MUSCLE. Take it back, and get ready to feel better than you ever have! . * Follow Up:?1 Year (Reason: Y early Customer Solutions Coordinator Exam) * Images: Billing Information: * Visit Code:? 89030 Preventive Care Est Pt. Age 40-64. * Procedure Codes:? 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 She has been in state of good health since her last exam. She has the following concerns: none She has received the [employer] Covid-19 vaccine. Relationship status: for 35 years. She is sexually active. Sexual partner(s): male. She does not wish to have STI testing. Menses: absent Contraception: Mirena - inserted 09/2020 She does report vaginal dryness - she doesn't use lubricant. She does not have hot flashes/night sweats. The patient has [...] has heterogeneously dense breast tissue. She does not have a family history of colon cancer. She a has had a colonoscopy. The last colonoscopy was 02/05/2021. Next due in 2030. The patient does not exercise. Ernestina is due to have a baby about 04/04/24. Decided not to determine gender before . Examination Category Sub-Category Detail Notes Category Not es General Examination GENERAL APPEARANCE: in no ac adrian distress, well developed, well nourished, recreational assistant present in room HEAD: normocephalic, atrau matic NECK/THYROID: neck supple, full ra nge of motion, thyroid normal ABDOMEN: soft, non-tender, no n distended without masses or hepatosplenomegaly NEUROLOGIC: alert and oriented, gait normal SKIN: [...] normal and is not tender to palpation, IUD threads seen, uterus is normal size, mobile, nontender and anteverted, ovaries are not palpable
--- OUTSIDE RECORDS SUMMARY | 2024-09-18 10:07 | XMS_ITS | Clinical Summary ---
Author Organization [facility] Address [address] [place] [id number] Care Team Providers Care Business Services Clerk Name Role Phone Enid Flannery MD Primary Care Provider [phone] Allergies Active Allergy Reactions Criticality Noted Date Comments Adhesives/Tape Itching Low 07/31/2024 Sulfa Antibiotics Rash/Dermatitis Low 07/31/2024 Medications Medication Sig Dispensed Refills Start Date End Date Status Mounjaro 5 MG/0.5ML pen-injector 08/10/2023 Active SUMAtriptan (IMITREX) 25 MG tablet Take 100 mg by mouth every 2 (two) hours as needed. Active Vitamin D3 (CHOLECALCIFEROL) 50 MCG (2000 UT) tabletIndications:Spr ain of medial collateral ligament of left knee, initial encounter Take 2 tablets (4,000 Units total) by mouth daily. 30 tablet 3 10/27/2023 Active methocarbamol (ROBAXIN) 500 MG tabletIndications:Spr ain of medial collateral ligament of left knee, initial encounter Take 1 tablet (500 mg total) by mouth 2 (two) times a day as needed for muscle spasms. 60 tablet 10/27/2023 Active meloxicam (MOBIC) 15 MG tabletIndications:Spr ain of medial collateral ligament of left knee, initial encounter Take 1 tablet (15 mg total) by mouth daily. 30 tablet 10/27/2023 Active predniSONE (DELTASONE) 20 MG tabletIndications:Mil d intermittent asthma with exacerbation Take 2 tablets (40 mg total) by mouth daily. With food. 10 tablet 11/17/2023 Active albuterol (PROVENTIL HFA; VENTOLIN HFA) 108 (90 Base) MCG/ACT inhalerIndications:Mi ld intermittent asthma with exacerbation Inhale 2 puffs 4 times daily (every 6 hours) as needed for wheezing or shortness of breath. 1 each 11/17/2023 Active Active Problems Problem Noted Date Diagnosed Date Abnormal gall bladder diagnostic imaging 024 11/17/2023 Adjustment disorder with anxious mood 11/17/2023 11/17/2023 Arthritis 11/17/2023 11/17/2023 Asthma 11/17/2023 11/17/2023 Circulation problem 11/17/2023 11/17/2023 Cluster headaches 11/17/2023 11/17/2023 History of pneumonia 11/17/2023 11/17/2023 Lupus erythematosus 11/17/2023 11/17/2023 Migraine headache 11/17/2023 11/17/2023 Seasonal allergies 11/17/2023 11/17/2023 Vaginal candidiasis 11/17/2023 11/17/2023 Irritable bowel syndrome 04/29/2011 024 Encounters Date Type Department Care Team Description 07/31/2024 4:31 PM EST Hospital Encounter [facility] [address] [place] [address] 07/31/2024 4:00 PM EST Office Visit [facility] [address] [place] [address] Zain Yeboah MD Nguyen, Nam V, PA Closed nondisplaced fracture of head of left radius, initial encounter (Primary Dx); Contusion of face, initial encounter; Elbow injury, left, initial encounter 07/31/2024 Travel from Last 3 Months Immunizations Name Administration Dates Next Due Hep A / Hep B 02/07/2004, 4,07/03/2002,05/29 Influenza Inactivated/Split Preservative Free IM 05/06/2015,03/28/2014,05/15/2013,04/29,05/05/2010,05/28/2008,07/08/2007 Pneumococcal Polysaccharide 23-Valent 04/29/2011 Tdap 10/08/2023,06/23/2010 Typhoid Inactivated 12/05/2012,05/29/2002 Social History Tobacco Use Types Packs/Day Years Used Date Smoking Tobacco: Never Smokeless Tobacco: Never Sex and Gender Information Value Date Recorded Sex Assigned at Not on file Gender Identity Not on file Sexual Orientation Not on file Last Filed Vital Signs Vital Sign Reading Time Taken Comments Blood Pressure 166/93 07/31/2024 4:18 PM EST Pulse 70 07/31/2024 4:18 PM EST Temperature 35.8 ??C (96.5 ??F) 07/31/2024 4:18 PM ES T Respiratory Rate 16 07/31/2024 4:18 PM EST Oxygen Saturation 98% 07/31/2024 4:18 PM EST Inhaled Oxygen Concentration - - Weight 78 kg (172 lb) 10/27/2023 7:11 PM EDT Height 165.1 cm (5' 5 ) 10/27/2023 7:11 PM EDT Body Mass Index 28.62 10/27/2023 7:11 PM EDT Plan of Treatment Health Maintenance Due Date Last Done Comments Hepatitis C Virus Screening 1970 HIV Screening 1983 Pap Smear (Ages 21-65) 1991 Mammogram 2010 Pneumococcal Vaccines 50+ (2 of 2 - PCV) 04/29/2012 04/29/2011 Colonoscopy 2015 Zoster (Shingles) Vaccine (1 of 2) 2020 Influenza Vaccine 02/03/2024 05/06/2015, , 05/15/2013, Additional history exists COVID-19 Vaccine (4 - 2023-2 5 season) 2024 09/08/2021, 10/05/2020, 09/14/2020 DTaP/Tdap/Td Vaccines (3 - T d or Tdap) 10/07/2033 10/08/2023, 06/23/2010 Hepatitis B Vaccines Completed 02/07/2004, 12/08/2003, 07/03/2002, Additional history exists Procedures Procedure Name Priority Date/Time Associated Diagnosis Comments XR ELBOW 3+ VIEWS-LEFT STAT 07/31/2024 4:36 PM EST Elbow injury, left, initial encounter from Last 3 Months Results * XR Elbow 3+ views-Left (07/31/2024 4:36 PM EST) Anatomical Region Laterality Modality Elbow Left Computed Radiogr aphy 07/31/2024 4:50 PM EST Impressions 07/31/2024 4:51 PM EST Essentially nondisplaced radial head fracture. Narrative 07/31/2024 4:51 PM EST EXAM: XR ELBOW 3+ VIEWS-LEFT on 07/31/2024 4:31 PM CLINICAL HISTORY: FOOSH injury s/p ground level fall. COMPARISONS: None TECHNIQUE: AP, lateral, oblique radiographs of the left elbow. FINDINGS: Curvilinear lucency in the radial head extending into the radiocapitellar joint. Elbow joint effusion. Procedure Note Khadar Nazario MD - 07/31/2024 EXAM: XR ELBOW 3+ VIEWS-LEFT on 07/31/2024 4:31 PM CLINICAL HISTORY: FOOSH injury s/p ground level fall. COMPARISONS: None TECHNIQUE: AP, lateral, oblique radiographs of the left elbow. FINDINGS: Curvilinear lucency in the radial head extending into the radiocapitellarjoint. Elbow joint effusion. IMPRESSION: Essentially nondisplaced radial head fracture. KANDY Larios IMKayli DIAGNOSTIC IMAGI NG ORDERABLES from Last 3 Months Care Teams Business Services Clerk Relationship Specialty Start Date End Date Enid Flannery MD [address] [place] [phone] PCP - General Internal Medicine 10/27/23
--- OUTSIDE RECORDS SUMMARY | 2024-09-18 10:07 | XMS_ITS ---
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 Physical Encounters Encounter Location Date Provider Diagnosis [facility] [address] [address] 11/18/2023 BRAYAN SHELDON Encounter for gynecological examination [...] Follow Up: 1 Year, Reason: Y early Media Services Coordinator Exam Provider Name:BRAYAN Sinhg, 02/01/2025 01:00:00 PM, [address], [address], [place], [address], Progress Notes * JESUSITA REIDOB:1970 (54 yo F)Acc No.[id number]:11/18/2023 PROGRESS NOTES Patient:?ALEK REID Provider:?BRAYAN SHELDON MD :1970???Age:53 Y???Sex:Female D ate:11/18/2023 Address:[address] [place], [place] [id number] Pcp:YAYA ARELLANO MD Subjective: * Chief Complaints: * ???1. Annual PLAYBACK OPERATOR Physical. 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 ?She has been in state of good health since her last exam. She has the following concerns: ?She has received the [employer] Covid-19 vaccine. ?Relationship status: * for nearly 35 years. She is sexually active. Sexual partner(s): male. She does not wish to have STI testing. ?Menses: absent ?Contraception: Mirena - inserted 09/2020 ?She does* report vaginal dryness - she doesn't use lubricant. She does *not have hot flashes/night sweats. ?The patient has [...] has heterogeneously dense breast tissue. ?She does *not have a family history of colon cancer. She a has had a colonoscopy. The last colonoscopy was 02/05/2021. Next due in 2030. ?The patient does *not exercise. Ernestina is due to have a baby about 04/04/24. * ROS:?Annual Media Services Coordinator Exam ROS:?Bowel habit changes?denies.?Bladder symptoms?denies.?Vaginal discharge, unusual?denies.?Vaginal itch or odor?denies.?weight or appetite changes?denies.?Chest pains, SOB?denies.?depression?denies.?Breast:?Denies?Breast lump.?Denies?Nipple discharge.?Hematology:?Denies?Swollen glands.?Skin:?Patient denies?changing moles.?Psychiatric:?Denies?Anxiety.? * Medical History:? Objective: * Vitals:? * Examination: ???General Examination: ?GENERAL APPEARANCE:?in no acute distress, well developed, well nourished, bellows tester present in room.?HEAD:?normocephalic, atraumatic.?NECK/THYROID:?neck supple, full range of motion, thyroid normal.?LYMPH NODES:?no axillary or supraclavicular adenopathy.?SKIN:? normal, good turgor, no rashes, no suspicious lesions.?BREASTS:? normal, no dimpling, no discharge, no drainage, no masses palpable bilaterally, nontender.?ABDOMEN:? soft, non-tender, non distended without masses or hepatosplenomegay.?RECTAL:? normal tone, no masses palpable.?BACK:? no costovertebral [...] mammogram for malignant neoplasm of breast - Z12.31???3.?Encounter for screening for infections with a predominantly sexual mode of transmission - Z11.3??? Plan: * Treatment: 2.?Encounter for screening m ammogram for malignant neoplasm of breast?Imaging: MM Digital Screening Mammogram 3D * Follow Up:?1 Year (Reason: Y early Media Services Coordinator Exam) * Images: Billing Information: * Visit Code:? [id number] Preventive Care Est Pt. Age 40-64. * Procedure Codes:? 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 She has been in state of good health since her last exam. She has the following concerns: She has received the Pfizer Covid-19 vaccine. Relationship status: * for nearly [...] General Examination GENERAL APPEARANCE: in no ac tulal[place] distress, well developed, well nourished, bellows tester present in room HEAD: normocephalic, atrau matic [...]
--- OUTSIDE RECORDS SUMMARY | 2024-09-18 10:08 | XMS_ITS | Patient Health Record ---
Author Organization [employer] [facility] Address [address] [place] [address] [place] [address] Care Team Providers Care Informatics Nurse Name Role Phone Harmony ARELLANO MD, AYYA Primary Care Provider BRAYAN Tovar Unavailable [phone] Allergies Allergen (clinical drug ingredient) Drug/Non Drug Allergy documented on EMR Reaction Allergy Type Onset Date Status Sulfur unknown, but family has anaphylaxis Drug Allergy Active Adhesive rash Allergy Active Reason For Referral No Information Medications Medication SIG (Take, Route, Frequency, Duration) [...] since you last smoked? > 10 years Sexual History Question Answer Notes Had sex in the past 12 months (vaginal, oral, or anal)? Yes with Men only Use protection? No Have you ever had a Sexually transmitted disease ? No Tobacco use other than smoking: Question Answer [...] Positive Vital Signs Temperature 97.1 degrees Fahrenheit 01/27/2024 Blood pressure diastolic 80 mm Hg 01/27/2024 Height 65 in 01/27/2024 Blood pressure systolic 122 mm Hg 01/27/2024 Weight 176 lbs 01/27/2024 BMI 29.28 kg/m2 01/27/2024 Encounters Encounter Location Date Provider Diagnosis [facility] [address] [place] [address] 01/27/2024 BRAYAN SHELDON Encounter for gynecological examination [...] until 09/2028 or menopause Plan Of Treatment Pending Test Test Name Order Date Test, Urine 09/13/2020 MM Digital Screening Mammogram 3D 2021 MM Digital Screening Mammogram 3D 2022 MM Digital Screening Mammogram 3D 2023 MM Digital Screening Mammogram 3D 2019 MM Digital Screening Mammogram 3D 2020 Next Appt Details Provider Name:BRAYAN PRUITT Francisco, 02/01/2025 01:00:00 PM, [address], [address], [place], [address], Insurance Providers Payer Name Payer Address Payer Phone Subscriber Number Group Number Insured Name Patient Relationship to Insured Coverage Start Date Coverage End Date [employer] [address] [place] [address] [id number] CATALINA REID JR. Spouse - patient is the spouse of the insured Medical (General) History Medical History History ICD Code Migraine, unspecified, not intractable, without status migrainosus G43.909 Irritable bowel syndrome with constipati on K58.1 Surgical History Surgery Date(Month/Year) Cholecystectomy Hospitalization History Reason Date(Month/Year) childbirth
--- OUTSIDE RECORDS SUMMARY | 2024-09-18 10:08 | XMS_ITS | Encounter Summary ---
Author Organization [facility] Address [address] [place] [address] Care Team Providers Care Laboratory Veterinarian Name Role Phone Enid Flannery MD Primary Care Provider [phone] Encounter Details Date Type Department Care Team (Late st Contact Info) Description 07/31/2024 4:31 PM EST Hospital Encounter [facility] [address] [place] [address] Social History Tobacco Use Types Packs/Day Years Used Date Smoking Tobacco: Never Smokeless Tobacco: Never Sex and Gender Information Value Date Recorded Sex Assigned at Not on file Gender Identity Not on file Sexual Orientation Not on file documented as of this encounter Plan of Treatment Not on file documented as of this encounter Procedures Procedure Name Priority Date/Time Associated Diagnosis Comments XR ELBOW 3+ VIEWS-LEFT STAT 07/31/2024 4:36 PM EST Elbow injury, left, initial encounter documented in this encounter Results * XR Elbow 3+ views-Left (07/31/2024 [...] Essentially nondisplaced radial head fracture. KANDY Larios IMG DIAGNOSTIC IMAGI NG ORDERABLES documented in this encounter Visit Diagnoses Not on filedocumented in this encounter Care Teams Laboratory Veterinarian Relationship Specialty Start Date End Date Enid Flannery MD [address] [place] [address] PCP - General Internal Medicine 10/27/23 documented as of this encounter
--- OUTSIDE RECORDS SUMMARY | 2024-09-18 10:08 | XMS_ITS ---
Author Organization [employer] Address [address] [facility] [address] [place] [address] Care Team Providers Care Erecting Crane Operator Name Role Phone Harmony ARELLANO MD, YAYA Primary Care Provider Unavailab BRAYAN Salinas Unavailable [phone] REASON FOR VISIT Annual TRADE MARK EXAMINER Physical Encounters Encounter Location Date Provider Diagnosis [facility] [address] [address] 09/13/2023 BRAYAN SHELDON Plan Of Treatment Next Appt Details Provider Name:BRAYAN Singh, 02/01/2025 01:00:00 PM, [address] [place] [address], [address], [place], [address], Progress Notes * TYRESE REIDPARVINOB:1970 (54 yo F)Acc No.[id number]:09/13/2023 PROGRESS NOTES Patient:?ALEK REID Provider:?BRAYAN SHELDON MD :1970???Age:53 Y???Sex:Female D ate:09/13/2023 Address:[address] [place] [address] Pcp:YAYA ARELLANO MD Subjective: * Chief Complaints: * ???1. Annual TRADE MARK EXAMINER Physical. * Medical History:? Objective: * Vitals:? Assessment: Plan: * Treatment: * Images: Billing Information: * Visit Code:? * Procedure Codes:? * Electronic signature of BRAYAN SHELDON MD on 09/18/2024 at 10:07 AM EDT Sign off status: Pending * Provider:?BRAYAN SHELDON MD Date:?2023 Generated for Davin yanes/Darrick/Jazz on:?09/18/2024 10:07 AM EDT
== END 2024-09-18 10:10 | disposition home or self-care (01) ==
LOC: HO.HMCFM 09:21
PROVIDERS: PCP Internal Medicine; Visit Provider Internal Medicine
DX: E66.3 Overweight (principal); R06.83 Snoring

== ENCOUNTER → 2024-09-18 09:20 | Outpatient (BNVA) | payer BC, SELFPAY | PROVIDERS: PCP Internal Medicine; Visit Provider Internal Medicine ==

== ENCOUNTER → 2024-11-22 09:08 | Outpatient (REF) | payer BC, SELFPAY ==
--- OUTSIDE RECORDS SUMMARY | 2024-11-22 10:22 | XMS_ITS | Encounter Summary ---
Author Organization [facility] Address [address] [place] [address] Care Team Providers Care Lithographic General Worker Name Role Phone Enid Flannery MD Primary Care Provider [phone] Encounter Details Date Type Department Care Team (Late st Contact Info) Description 07/31/2024 4:31 PM EST Hospital Encounter [facility] [address] [place] [id number] Social History Tobacco Use Types Packs/Day Years Used Date Smoking Tobacco: Never Smokeless Tobacco: Never Comments Unknown Sex and Gender Information Value Date Recorded Sex Assigned at Not on file Legal Sex Female 4:59 PM EDT Gender Identity Not on file Sexual Orientation [...] radial head fracture. KANDY Larios IMG DIAGNOSTIC IMAGING ORDERABL ES Final Result documented in this encounter Visit Diagnoses Not on filedocumented in this encounter Care Teams Lithographic General Worker Relationship Specialty Start Date End Date Enid Flannery MD [address] [place] [address] PCP - General Internal Medicine 10/27/23 documented as of this encounter
--- OUTSIDE RECORDS SUMMARY | 2024-11-22 10:22 | XMS_ITS ---
Author Organization [employer] Address [address] [place] [address] Care Team Providers Care Transport Aide Name Role Phone Harmony ARELLANO MD YAYA Primary Care Provider Unavailab BRAYAN Salinas Unavailable [phone] REASON FOR VISIT Annual MANAGER ACCESS Physical Encounters Encounter Location Date Provider Diagnosis [facility] [employer] [address] [address] 11/18/2023 BRAYAN SHELDON Encounter for gynecological examination [...] Follow Up: 1 Year, Reason: Y early Dental Office Coordinator Exam Provider Name:BRAYAN Singh, 02/01/2025 01:00:00 PM, [address], [address], [place], [address], Progress Notes * JESUSITA REIDOB:1970 (54 yo F)Acc No.[id number]:11/18/2023 PROGRESS NOTES Patient:?ALEK REID Provider:?BRAYAN SHELDON MD :1970???Age:53 Y???Sex:Female D ate:11/18/2023 Address:[address] [place], [place] [id number] Pcp:YAYA ARELLANO MD Subjective: * Chief Complaints: * ???1. Annual MANAGER ACCESS Physical. 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 ?She has been in state of good health since her last exam. She has the following concerns: ?She has received the [employer] Covid-19 vaccine. ?Relationship status: * for nearly [...] have a baby about 04/04/24. * ROS:?Annual Dental Office Coordinator Exam ROS:?Bowel habit changes?denies.?Bladder symptoms?denies.?Vaginal discharge, unusual?denies.?Vaginal itch or odor?denies.?weight or appetite changes?denies.?Chest pains, SOB?denies.?depression?denies.?Breast:?Denies?Breast lump.?Denies?Nipple discharge.?Hematology:?Denies?Swollen glands.?Skin:?Patient denies?changing moles.?Psychiatric:?Denies?Anxiety.? * Medical History:? Objective: * Vitals:? * Examination: ???General Examination: ?GENERAL APPEARANCE:?in no acute distress, well developed, well nourished, fisher hoop net present in room.?HEAD:?normocephalic, atraumatic.?NECK/THYROID:?neck supple, full range [...] * Follow Up:?1 Year (Reason: Y early Dental Office Coordinator Exam) * Images: Billing Information: * Visit Code:? [id number] Preventive Care Est Pt. Age 40-64. * Procedure Codes:? 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 She has been in state of [...] General Examination GENERAL APPEARANCE: in no ac [place]ahu[place] distress, well developed, well nourished, fisher hoop net present in room HEAD: normocephalic, atrau matic [...]
--- OUTSIDE RECORDS SUMMARY | 2024-11-22 10:22 | XMS_ITS | Clinical Summary ---
Author Organization [facility] Address [address] [place] [address] Care Team Providers Care Geosciences Professor Name Role Phone Unavailable Primary Care Provider [...] Personal/Family Self 1970 [address] [place] [address]
--- OUTSIDE RECORDS SUMMARY | 2024-11-22 10:22 | XMS_ITS | Clinical Summary ---
Author Organization [address] Address [address] [place] [address] Care Team Providers Care Dining Chair Seat Cushion Trimmer Name Role Phone Enid Flannery MD Primary Care Provider [phone] Allergies Active Allergy Reactions Criticality Noted Date Comments Sulfa (Sulfonamide Antibiotics) 02/02 Medications sumatriptan (IMITREX) 100 MG tablet 09/23/2016 Active Social History Tobacco Use Types Packs/Day Years Used Date Smoking Tobacco: Never Smokeless Tobacco: Never Alcohol Use Standard Drinks/Week Comments Yes 0 (1 standard drink = 0.6 oz pur e alcohol) Comments No Sex and Gender Information Value Date Recorded Sex Assigned at Not on file Legal Sex Female 4:16 PM EDT Gender Identity Not on file Sexual Orientation Not on file Last Filed Vital Signs Vital Sign Reading Time Taken Comments Blood Pressure 124/80 02/15/2017 4:37 PM EDT Pulse 61 02/15/2017 4:37 PM EDT Temperature 37 ??C (98.6 ??F) 02/15/2017 4:37 PM EDT Respiratory Rate - - Oxygen Saturation 98% 02/15/2017 4:37 PM EDT Inhaled Oxygen Concentration - - Weight 86.5 kg (190 lb 12.8 oz) 02/15/2017 4:37 PM EDT Height 165.1 cm (5' 5 ) 02/15/2017 4:37 PM EDT Body Mass Index 31.75 02/15/2017 4:37 PM EDT Plan of Treatment Health Maintenance Due Date Last Done Comments HIV screening 1983 Hepatitis C screening 1988 Tetanus adult (Td q 10,TDAP once) 1990 Cervical cancer screening 1991 Breast cancer screening 2010 Lipid disorder screening 2010 Colon cancer screening, Colonoscopy 2015 Diabetes screening 2015 Pneumococcal Vaccine (50+ ye ars) (1 of 1 - PCV) 2020 Shingles vaccine (Shingrix) (1 of 2 - Shingrix (RZV) 2 Dose Standard Series) 2020 Covid-19 vaccine series (1 - 2023- season) 2024 Influenza vaccine 03/05/2025 RSV Immunization (1 - 1-dose 75+ series) 2045 Meningococcal Vaccine Aged Out No jinny philip eligible based on patient's age to complete this topic Pneumococcal Vaccine (2 - 49 years) Aged Out No longer eligible based on patient's age to complete this topic Insurance [facility] [id number] [facility] [id number] [facility] Care Teams Dining Chair Seat Cushion Trimmer Relationship Specialty Start Date End Date Enid Flannery MD PCP - General Internal Medicine 02/15/17
--- OUTSIDE RECORDS SUMMARY | 2024-11-22 10:22 | XMS_ITS ---
Author Organization [employer] Address [address] [facility] [address] [place] [address] Care [address] Scan Technologist Name Role Phone Harmony ARELLANO MD, YAYA Primary Care Provider Unavailab BRAYAN Salinas Unavailable [phone] REASON FOR VISIT Annual SUPERVISOR SPECIAL EDUCATION Physical Encounters Encounter Location Date Provider Diagnosis [facility] [address] [address] 09/13/2023 BRAYAN SHELDON Plan Of Treatment Next Appt Details Provider Name:BRAYAN Singh, 02/01/2025 01:00:00 PM, [address] [place] [address], [address], [place], [address], Progress Notes * TYRESE REIDPARVINOB:1970 (54 yo F)Acc No.[id number]:09/13/2023 PROGRESS NOTES Patient:?ALEK REID Provider:?BRAYAN SHELDON MD :1970???Age:53 Y???Sex:Female D ate:09/13/2023 Address:[address] [place] [address] Pcp:YAYA ARELLANO MD Subjective: * Chief Complaints: * ???1. Annual SUPERVISOR SPECIAL EDUCATION Physical. * Medical History:? Objective: * Vitals:? Assessment: Plan: * Treatment: * Images: Billing Information: * Visit Code:? * Procedure Codes:? * Electronic signature of BRAYAN SHELDON MD on 11/22/2024 at 10:22 AM EDT Sign off status: Pending * Provider:?BRAYAN SHELDON MD Date:?2023 Generated for Davin yanes/Darrick/Jazz on:?11/22/2024 10:22 AM EDT
--- OUTSIDE RECORDS SUMMARY | 2024-11-22 10:22 | XMS_ITS | Clinical Summary ---
Author Organization [facility] Address [address] [place] [address] Care Team Providers Care Compliance Quality Performance Analyst Name Role Phone Enid Flannery MD Primary Care Provider [phone] Allergies Active Allergy Reactions Criticality Noted Date Comments Adhesives/Tape Itching Low 07/31/2024 Sulfa Antibiotics Rash/Dermatitis Low 07/31/2024 Medications Mounjaro 5 MG/0.5ML pen-injector 4 Active SUMAtriptan (IMITREX) 25 MG tablet Take 100 mg by mouth every 2 (two) hours as needed. Active Vitamin D3 (CHOLECALCIFEROL) 50 MCG (2000 UT) tabletIndications :Sprain of medial collateral ligament of left knee, initial encounter Take 2 tablets (4,000 Units total) by mouth daily. 30 tablet 3 4 Active methocarbamol (ROBAXIN) 500 MG tabletIndications :Sprain of medial collateral ligament of left knee, initial encounter Take 1 tablet (500 mg total) by mouth 2 (two) times a day as needed for muscle spasms. 60 tablet 4 Active meloxicam (MOBIC) 15 MG tabletIndications :Sprain of medial collateral ligament of left knee, initial encounter Take 1 tablet (15 mg total) by mouth daily. 30 tablet 4 Active predniSONE (DELTASONE) 20 MG tabletIndications :Mild intermittent asthma with exacerbation Take 2 tablets (40 mg total) by mouth daily. With food. 10 tablet 4 Active albuterol (PROVENTIL HFA; VENTOLIN HFA) 108 (90 Base) MCG/ACT inhalerIndication s:Mild intermittent asthma with exacerbation Inhale 2 puffs 4 times daily (every 6 hours) as needed for wheezing or shortness of breath. 1 each Active Active Problems Problem Noted Date Diagnosed Date Abnormal gall bladder diagnostic imaging 024 11/17/2023 Adjustment disorder with anxious mood 11/17/2023 11/17/2023 Arthritis 11/17/2023 11/17/2023 Asthma 11/17/2023 11/17/2023 Circulation problem 11/17/2023 11/17/2023 Cluster headaches 11/17/2023 11/17/2023 History of pneumonia 11/17/2023 11/17/2023 Lupus erythematosus 11/17/2023 11/17/2023 Migraine headache 11/17/2023 11/17/2023 Seasonal allergies 11/17/2023 11/17/2023 Vaginal candidiasis 11/17/2023 11/17/2023 Irritable bowel syndrome 04/29/2011 024 Immunizations Immunization Administration Dates Next Due Hep A / [...] Zoster (Shingles) Vaccine (1 of 2) 2020 COVID-19 Vaccine (4 - 2023-2 5 season) 2024 09/08/2021, 10/05/2020, 09/14/2020 Influenza Vaccine 02/02/2025 05/06/2015, , 05/15/2013, Additional history exists DTaP/Tdap/Td Vaccines (3 - T d or Tdap) 10/07/2033 10/08/2023, 06/23/2010 Hepatitis B Vaccines Completed 02/07/2004, 12/08/2003, 07/03/2002, Additional history exists Insurance [facility] PPO Care Teams Compliance Quality Performance Analyst Relationship Specialty Start Date End Date Enid Flannery MD [address] [place] [phone] PCP - General Internal Medicine 10/27/23
--- OUTSIDE RECORDS SUMMARY | 2024-11-22 10:23 | XMS_ITS | Patient Health Record ---
Author Organization [facility] Address [address] [place] [address] [place] [address] Care Team Providers Care Vehicle And Equipment Cleaner Name Role Phone Harmony ARELLANO MD, YAYA Primary Care Provider BRAYAN Tovar Unavailable [phone] Allergies Allergen (clinical drug ingredient) Drug/Non Drug [...] 01/27/2024 Encounters Encounter Location Date Provider Diagnosis [facility] [address] [place] [address] 01/27/2024 BRAYAN SHELDON Encounter for gynecological examination [...] Name:BRAYAN PRUITT Francisco, 02/01/2025 01:00:00 PM, [address], [address], [place], [address], Insurance Providers Payer Name Payer Address Payer Phone Subscriber Number Group Number Insured Name Patient Relationship to Insured Coverage Start Date Coverage End Date [employer] [place] [address] [place] [address] [phone] [id number] CATALINA REID JR. Spouse - patient is the spouse of the insured Medical (General) History Medical History History ICD Code Migraine, unspecified, not intractable, without status migrainosus G43.909 Irritable bowel syndrome with constipati on K58.1 Surgical History Surgery Date(Month/Year) Cholecystectomy Hospitalization History Reason Date(Month/Year) childbirth
== END ==
LOC: HO.SL 09:08
PROVIDERS: PCP Internal Medicine; Visit Provider Internal Medicine
DX: R06.83 Snoring (principal); E66.3 Overweight; Z68.29 Body mass index [BMI] 29.0-29.9, adult
CPT/HCPCS: 95806

== ENCOUNTER 2025-01-09 12:58 | Outpatient (AMB) | payer BC, SELFPAY ==
--- OUTSIDE RECORDS SUMMARY | 2019-06-14 11:00 | XMS_ITS | Continuity of Care Document ---
Author Organization [facility] Address [address] [place] [phone] Phone Care Team Providers Care Broach Grinder Name Role Phone Mauri Savage MD Unavailable Unavailable Allergies, Adverse Reactions, Alerts Substance Reaction Status Criticality Sulfa (Sulfonamide Antibiotics) Active No Information Medications Medication Instructions Dosage Effective Dates (start - stop) Status Comments sumatriptan 100 mg tablet take 1 tablet by oral route after onset of migraine; may repeat after 2 hours if headache returns,not to exceed 200mg in 24hrs as needed 100 MG - Active Procedures Procedure Date Inj_Facet_Cervical Or Thoracic 19 Inj_Facet_Cervical_2nd Level Inj_Facet_Cervical_3rd Level Facility_Inj_Facet_Cervical Facility_Inj_Facet_Cervical_2nd Level De Facility_Inj_Facet_Cervical_3rd Level De Inj_Facet_Cervical Or Thoracic 19 Inj_Facet_Cervical_2nd Level Inj_Facet_Cervical_3rd Level Facility_Inj_Facet_Cervical Facility_Inj_Facet_Cervical_2nd Level No Facility_Inj_Facet_Cervical_3rd Level No NP_Office Visit Level 5 Advance Directives Directive Yes / No Effective Date File Name No Information Encounters Encounter Description Practice Location Reason(s) For Visit Diagnoses Date Provider [facility], [address] [place], [place] [address] [facility], [place], [place], [id number], [place] tel:[phone] [facility] Spondylosis w/o myelopathy or radiculopathy, cervical region 2018 Janette Dotson. [address] [place] [address], [facility], . tel:[phone] [facility], [address] [place] [address], [id number], tel:[phone] [facility] No Information [address] [facility] [address], [id number], [place]. tel:[phone] [facility], [address] [place] [address], [place], [place], [id number], tel:[phone] [facility] Spondylosis w/o myelopathy or radiculopathy, cervical region 2018 Janette Simons [address] [place] [address], [facility], . tel:[phone] [facility], [address] [place] [address], [place], [place], [id number], tel:[phone] [facility] No Information [address], [id number], [place]. tel:[phone] NP_Office Visit Level 5 [facility], [address] [place] [address], [place], [place], [id number], tel:[phone] [facility] neck pain pain (chief complaint)Sh oulder Pain (chief complaint) Body mass index (BMI) 33.0-33.9, adultSpondylosis w/o myelopathy or radiculopathy, cervical regionOther cervical disc degeneration, cervicothoracic regionOther intervertebral disc displacement, thoracic region 2018 Janette Simons [address] [place] [address], [address], [place]. tel:[phone] Family History Family Member Type Diagnosis Age At Onset Family h/o Problem (finding) Diabetes Family h/o Problem (finding) Asthma Family h/o Problem (finding) Depression Payers Payer name Insurance type Covered constitution party ID Authoriza tion(s) No Information Social History Type Description Quantity Date Captured Comments Sex Female Smoking Status No Information Chief Complaint And Reason For Visit No Information History Of Present Illness Encounter Date Complaint History Of Prese nt Illness neck pain pain Shoulder Pain Instructions Date Instruction Additional Infor jessica Exercise promotion: stretching R elated to Body mass index (BMI) 33.0-33.9, adult Assessments Type Assessment Date No Information
--- OUTSIDE RECORDS SUMMARY | 2023-11-18 04:30 | XMS_ITS ---
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 Encounters Encounter Location Date Provider Diagnosis [facility] [employer] [address] [phone] 11/18/2023 BRAYAN SHELDON Encounter for gynecological examination (general) (routine) without abnormal findings Z01.419 ; Encounter for screening mammogram for malignant neoplasm of breast Z12.31 and Encounter for screening for infections with a predominantly sexual mode of transmission Z11.3 Assessments Encounter Date Diagnosis (ICD Code) Assessment Notes Treatment Notes Treatment Clinical Notes Section Notes 11/18/2023 Encounter for gynecological examination (general) (routine) without abnormal findings (ICD-10 - Z01.419) During the visit, the following areas of concern were addressed: Discussed cervical cancer screening with either cytology alone every 3 years or high risk HPV co-testing every 5 years as per ASCCP guidelines. Advised continued annual pelvic exams. Patient encouraged to increase her level of exercise. SBE technique encouraged/tau ght. Patient reminded when annual mammogram is due. Patient encouraged to keep colon screening up to date. 11/18/2023 Encounter for screening mammogram for malignant neoplasm of breast (ICD-10 - Z12.31) 11/18/2023 Encounter for screening for infections with a predominantly sexual mode of transmission (ICD-10 - Z11.3) Plan Of Treatment Treatment Notes Assessment Notes Encounter for gynecological examination (general) (routine) without abnormal findings During the visit, the following areas of concern were addressed: Discussed cervical cancer screening with either cytology alone every 3 years or high risk HPV co-testing every 5 years as per ASCCP guidelines. Advised continued annual pelvic exams. Patient encouraged to increase her level of exercise. SBE technique encouraged/taught. Patient reminded when annual mammogram is due. Patient encouraged to keep colon screening up to date. Pending Test Test Name Order Date MM Digital Screening Mammogram 3D 2023 Next Appt Details Follow Up: 1 Year, Reason: Y early Hearings Reporter Exam Provider Name:BRAYAN Singh, 02/01/2025 01:00:00 PM, [address], [address], [place], [address], Progress Notes * JESUSITA REIDOB:1970 (54 yo F)Acc No.[id number]:11/18/2023 PROGRESS NOTES Patient: ALEK FLOYD Provider: Mayur SHELDON MD :1970 A ge:53 Y S ex:Female Date:11/18/2023 Address:[address] [place] [address] Pcp:YAYA ARELLANO MD Subjective: * Chief Complaints: * 1 . 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 * HPI: C onstitutional: Mikayla payne is a 53yo with amenorrhea on Mirena who presents for her yearly sole tacker exam. S he has been in state of good health since her last exam. She has the following concerns: S he has received the [employer] Covid-19 vaccine. R elationship status: * for nearly 35 years. She is sexually active. Sexual partner(s): male. She does not wish to have STI testing. Mikayla enses: absent C ontraception: Mirena - inserted 09/2020 S he does* report vaginal dryness - she doesn't use lubricant. She does *not have hot flashes/night sweats. T he patient has not had an abnormal pap smear within the last 5 years. Her most recent pap smear was 09/01/21 - ASCUS, Neg HR HPV. Next due for cotesting in 2024. S he has not been diagnosed with breast cancer. She does have a family history of breast cancer - maternal cousin. Her last mammogram was 06/14/23. She has heterogeneously dense breast tissue. S he does *not have a family history of colon cancer. She a has had a colonoscopy. The last colonoscopy was 02/05/2021. Next due in 2030. T he patient does *not exercise. Ernestina is due to have a baby about 04/04/24. * ROS: A nnual Hearings Reporter Exam ROS: Bowel habit changes d enies. B ladder symptoms d enies. V aginal discharge, unusual d enies. V aginal itch or odor d enies. w eight or appetite changes d enies. C hest pains, SOB d enies. d epression d enies.? B reast: Denies B reast lump. D enies N ipple discharge.? H ematology: Denies S wollen glands. S kin: Patient denies c hanging moles. P sychiatric: Denies A nxiety. * Medical History: Objective: * Vitals: * Examination: G eneral Examination: GENERAL APPEARANCE: i n no acute distress, well developed, well nourished, bleacher kraft pulp present in room. HEAD: n ormocephalic, atraumatic. NECK/THYROID: n rina supple, full range of motion, thyroid normal. LYMPH NODES: n o axillary or supraclavicular adenopathy.? SKIN: normal, good turgor, no rashes, no suspicious lesions. BREASTS: normal, no dimpling, no discharge, no drainage, no masses palpable bilaterally, nontender. ABDOMEN: soft, non-tender, non distended without masses or hepatosplenomegay. RECTAL: normal tone, no masses palpable. BACK: no costovertebral angle tenderness. FEMALE GENITOURINARY: V ulva without lesions or masses, vagina pink without abnormal discharge, lesions or masses, cervix appears normal and is not tender to palpation, uterus is normal size, mobile, nontender and anteverted, ovaries are not palpable. NEUROLOGIC: alert and oriented, gait normal. PSYCH: alert, oriented, cognitive function intact, cooperative with exam, good eye contact, mood/affect full range, speech clear. Assessment: * Assessment: 1. E ncounter for gynecological examination (general) (routine) without abnormal findings - Z01.419 (Primary) 2 . E ncounter for screening mammogram for malignant neoplasm of breast - Z12.31 3 . E ncounter for screening for infections with a predominantly sexual mode of transmission - Z11.3 Plan: * Treatment: 2. E ncounter for screening mammogram for malignant neoplasm of breast I maging: MM Digital Screening Mammogram 3D * Follow Up: 1 Year (Reason: Yearly Hearings Reporter Exam) * Images: Billing Information: * Visit Code: [id number] Preventive Care Est Pt. Age 40-64. * Procedure Codes: * Electronic signature of BRAYAN SHELDON MD on 01/09/2025 at 01:41 PM EDT Sign off status: Pending * Provider: Mayur SHELDON MD Date: 0 11/18/2023 Generated for Davin yanes/Darrick/Jazz on: 0 01/09/2025 01:41 PM EDT History and Physical Notes * HPI (History of Present Illness) Category Sub-Category Detail Notes Category Not es Constitutional Alek is a 53yo with amenorrhea on Mirena who presents for her yearly sole tacker exam. She has been in state of good health since her last exam. She has the following concerns: She has received the [employer] Covid-19 vaccine. Relationship status: * for nearly 35 years. She is sexually active. Sexual partner(s): male. She does not wish to have STI testing. Menses: absent Contraception: Mirena - inserted 09/2020 She does* report vaginal dryness - she doesn't use lubricant. She does *not have hot flashes/night sweats. The patient has not had an abnormal pap smear within the last 5 years. Her most recent pap smear was 09/01/21 - ASCUS, Neg HR HPV. Next due for cotesting in 2024. She has not been diagnosed with breast cancer. She does have a family history of breast cancer - maternal cousin. Her last mammogram was 06/14/23. She has heterogeneously dense breast tissue. She does *not have a family history of colon cancer. She a has had a colonoscopy. The last colonoscopy was 02/05/2021. Next due in 2030. The patient does *not exercise. Ernestina is due to have a baby about 04/04/24. Examination Category Sub-Category Detail Notes Category Not es General Examination GENERAL APPEARANCE: in no ac [place] tribe distress, well developed, well nourished, bleacher kraft pulp present in room HEAD: normocephalic, atrau matic NECK/THYROID: neck supple, full ra nge of motion, thyroid normal ABDOMEN: soft, non-tender, no n distended without masses or hepatosplenomegay NEUROLOGIC: alert and oriented, gait normal SKIN: normal, good turgor, no rashes, no suspicious lesions BACK: no costovertebral an gle tenderness BREASTS: normal, no dimpling, no discharge, no drainage, no masses palpable bilaterally, nontender LYMPH NODES: no axillary or supra clavicular adenopathy RECTAL: normal tone, no mass es palpable PSYCH: alert, oriented, cog nitive function intact, cooperative with exam, good eye contact, mood/affect full range, speech clear FEMALE GENITOURINARY: Vulva without lesi ons or masses, vagina pink without abnormal discharge, lesions or masses, cervix appears normal and is not tender to palpation, uterus is normal size, mobile, nontender and anteverted, ovaries are not palpable
--- NOTE | 2025-01-09 13:08 | MHC.PC.OV ---
Vital Signs 01/09/25 13:15 Height 5 ft 5 in Weight 186 lb BMI 30.9 BP 126/84 Blood Pressure Location Lt brachial Position Sitting Respiration 14 Pulse 65 Pulse Source Pulse Oximeter Temp 98.3 F Temp Source Oral Pulse Oximetry (%) 98 Oxygen Delivery Method Room Air Intake Visit Reasons: cpe Intake Note: Physical Tender Coordinator Required: No Allergies No Known Allergies Allergy (Verified 01/09/25 13:10) Tobacco use date assessed: 01/09/25 Dental Screening Dental Screen Date: 07/10/24 HPI HPI Comments History of Present Illness Details 54 year old female with a past medical history of migraine, IBS, depression, asthma, neck pain, abnormal tfts presenting for physical exam Seen in the ER for kidney stone. Referred to urology did not go ended up passing while in the ER. Headaches: on imitrex 100mg prn. Recent sleep test with supine apnea/snoring not meeting criteria for BELA Chronic pain: There had been interval improvement with weight loss, though she has gained weight off her GLP despite low calorie diet and exericse regimen. Has seen physiatry, vascular and rheumatology IBS: on as needed hyoscyamine Asthma: stable on albuterol as needed anxiety: infrequent xanax use. Uses 1-2 prescriptions per year Preventive Colonoscopy 02/10/2021-10 years. Mammogram -Sees liner machine operator Dr Hawkins. She says mammo is UTD ROS see HPI PHYSICAL EXAM: GENERAL: Alert and oriented x 3. NAD EYES: EOMI. Anicteric. HENT: Moist mucous membranes. No scleral icterus. No cervical lymphadenopathy. LUNGS: Clear to auscultation bilaterally. CARDIOVASCULAR: Regular rate and rhythm. No murmur. No JVD. ABDOMEN: Soft, non-tender +bs EXTREMITIES: No edema. Non-tender. SKIN: No rashes or lesions. Warm. NEUROLOGIC: No focal neurological deficits. CN II-XII grossly intact PSYCHIATRIC: Cooperative. Appropriate mood and affect [facility] Medical History PAP (pulmonary alveolar proteinosis) H/O mammogram Surgical History H/O colonoscopy Hx of cholecystectomy Family History Mother Diabetes HTN (hypertension) Thyroid disease Brother Hypercholesterolemia Other FH: mental illness Social History Housing: House Alcohol intake: current Patient Tobacco Use Status: Former Tobacco user Cigarette Packs Per Day: 0.5 Years Smoked: 10 e-Cigarette/Vaping Use: Never Used service: No Current occupational status: employed Current occupation: [employer] Current occupational exposures/hazards: No Cognitive needs: No Hearing needs: No Vision needs: Yes (glasses) Questionnaire Thrive Questionnaire Date Thrive assessed: 07/10/24 I am a: Patient What is your living situation today?: I have a steady place to live Within the past 12 months, did the food you bought not last and you didn't have the money to get more?: Never true Within the past 12 months, did you worry whether your food would run out before you got money to buy more?: Never true Do you have trouble paying for medicines?: No Do you have trouble getting transportation to medical appointments?: No Do you have trouble paying your heating and electricity bill?: No Do you have trouble taking care of your child, family member or friend?: No Do you have trouble with day-to-day activities such as bathing, preparing meals, shopping, managing finances, etc.?: No Are you currently unemployed and looking for a job?: No Are you interested in more education?: No Please select the resources that you would like help with: None Currently or been in a relationship where the following occur: No concerns reported THRIVE Score: 0 AUDIT C Alcohol Use Questionnaire (AUDIT-C) 1. How often do you have a drink containing alcohol?: Monthly or less 2. How many drinks containing alcohol do you have on a typical day when you are drinking?: 1 or 2 3. How often do you have six or more drinks on one occasion?: Never Total Score: 1 Physical exam (Primary Care) Vital Signs: Last Vital Signs Temp 98.3 F 01/09/25 13:15 Pulse 65 01/09/25 13:15 Resp 14 01/09/25 13:15 BP 126/84 01/09/25 13:15 Pulse Ox 98 01/09/25 13:15 Oxygen Delivery Method Room Air 01/09/25 13:15 BMI result Body Mass Index 30.9 Tobacco/Smoking Status: Tobacco use Status Tobacco use date assessed 01/09/25 01/09/25 13:18 Patient Tobacco Use Status Former Tobacco user 01/09/25 13:10 e-Cigarette/Vaping Use Never Used 01/09/25 13:10 Thrive Assessment: Date of Thrive Assessment Date Thrive assessed 07/10/24 01/09/25 13:10 Currently or been in a relationship where the following occur: No concerns reported Coding Level of Care Code Est Pt Prev Care 40-64y(14942) Diagnoses Physical exam Z00.00 Obesity (BMI 30.0-34.9) E66.811 Irritable bowel syndrome, unspecified type K58.9 Irritable bowel syndrome type: unspecified Systemic lupus erythematosus, unspecified SLE type, unspecified organ involvement status M32.9 Systemic lupus erythematosus type: unspecified Systemic lupus erythematosus organ involvement: unspecified Assessment & Plan Assessment & Plan (1) Physical exam: Code(s): Z00.00 - Encounter for general adult medical examination without abnormal findings (2) Obesity (BMI 30.0-34.9): Code(s): E66.811 - Obesity, class 1 Category: Medical (3) IBS (irritable bowel syndrome): Code(s): K58.9 - Irritable bowel syndrome, unspecified Category: Medical Qualifiers: Irritable bowel syndrome type: unspecified Qualified Code(s): K58.9 - Irritable bowel syndrome, unspecified (4) Lupus (systemic lupus erythematosus): Code(s): M32.9 - Systemic lupus erythematosus, unspecified Category: Medical Qualifiers: Systemic lupus erythematosus type: unspecified Systemic lupus erythematosus organ involvement: unspecified Qualified Code(s): M32.9 - Systemic lupus erythematosus, unspecified Plan 54 year old female presenting for CPE Interval history reviewed Weight gain, obesity-trial phentermine. Sent GLP but insurance did not cover zepbound previously Migraines stable Anxiety stable Preventive UTD Orders: Orders Hemoglobin A1c Today E06.3 - Autoimmune thyroiditis, G43.909 - Migraine, unspecified, not intractable, without status migrainosus, K58.9 - Irritable bowel syndrome, unspecified, M32.9 - Systemic lupus erythematosus, unspecified, Z13.220 - Encounter for screening for lipoid disorders Complete Blood Count Auto Diff Today E06.3 - Autoimmune thyroiditis, G43.909 - Migraine, unspecified, not intractable, without status migrainosus, K58.9 - Irritable bowel syndrome, unspecified, M32.9 - Systemic lupus erythematosus, unspecified, Z13.220 - Encounter for screening for lipoid disorders Lipid Panel Today E06.3 - Autoimmune thyroiditis, G43.909 - Migraine, unspecified, not intractable, without status migrainosus, K58.9 - Irritable bowel syndrome, unspecified, M32.9 - Systemic lupus erythematosus, unspecified, Z13.220 - Encounter for screening for lipoid disorders Comprehensive Met. Panel Today E06.3 - Autoimmune thyroiditis, G43.909 - Migraine, unspecified, not intractable, without status migrainosus, K58.9 - Irritable bowel syndrome, unspecified, M32.9 - Systemic lupus erythematosus, unspecified, Z13.220 - Encounter for screening for lipoid disorders Medications: New phentermine must administer 30 minutes before or 1-2 hours after breakfast Good rx if not covered by insurance 37.5 mg PO DAILY 30 caps 1RF E66.811 - Obesity, class 1 Wegovy (semaglutide (weight loss)) administer weeks 1 through 4 of therapy 0.25 mg (0.5 mL) subcut QWEEK 2 mL 3RF NS E66.811 - Obesity, class 1, R06.83 - Snoring
[2025-01-09 13:15] VITALS: BP 126/84; PULSE 65; RESP 14; TEMP 36.8; O2SAT 98; BMI 30.9
--- OUTSIDE RECORDS SUMMARY | 2025-01-09 13:40 | XMS_ITS | Clinical Summary ---
Author Organization [address] Address [address] [address] Care Team Providers Care Alcohol Law Enforcement Agent Name Role Phone Enid Flannery MD Primary Care Provider [phone] Allergies Active Allergy Reactions Criticality Noted Date [...] 61 02/15/2017 4:37 PM EDT Temperature 37 C (98.6 F) 02/15/2017 4:37 PM EDT Respiratory Rate - [...] patient's age to complete this topic Insurance [facility] BS BS Care Teams Alcohol Law Enforcement Agent Relationship Specialty Start Date End Date Enid Flannery MD PCP - General Internal Medicine 02/15/17
--- OUTSIDE RECORDS SUMMARY | 2025-01-09 13:40 | XMS_ITS | Clinical Summary ---
Author Organization [facility] Address [address] [place] [address] Care Team Providers Care Assistant Signal Maintainer Name Role Phone Unavailable Primary Care Provider [...] 70 07/18/2018 12:30 PM EST Temperature 36.4 C (97.6 F) 07/18/2018 12:30 PM EST Respiratory Rate - - Oxygen Saturation 99% [...] (1 of 2) 2020 Influenza Vaccine (#1) 2025 Pneumococcal Vaccine Aged Out No long er eligible based on patient's age to complete this topic RSV Ped < 20 months Aged Out No longe r eligible based on patient's age to complete this topic Peggy Brewster Personal/Family Self 1970 [address] [place] [address]
--- OUTSIDE RECORDS SUMMARY | 2025-01-09 13:41 | XMS_ITS ---
Author Name [facility] Organization Unknown History of Medication Use Medication Directions Dispensed Refills Start Date End Date Stat us amoxicillin-clavula linda (AUGMENTIN) 875-125 MG per tablet Take 1 tablet by mouth 2 (two) times a day. 11/17/2023 11/25/2023 active Vitamin D3 (CHOLECALCIFEROL) 50 MCG (1999) tablet Take 2 tablets (4,000 Units total) by mouth daily. 10/27/2023 active Mounjaro 5 MG/0.5ML pen-injector 08/10/2023 active Mounjaro 5 MG/0.5ML pen-injector 08/10/2023 active Allergies Allergen Reaction Severity Comment Documented Date Source Statu s SULFA ANTIBIOTICS RASH/DERMATITIS 07/31/2024 [facility] active ADHESIVES/TAPE ITCHING [facility] Problems Problem Status Onset Date Problem Type Date of Resolution Source Asthma active 2023-11-17 ProblemAct [facility] Arthritis active 2023-11-17 ProblemAct [facility] Closed nondisplaced fracture of head of left radius, initial encounter active EncounterDiagnosisAct [facility] Vaginal candidiasis active 2023-11-17 ProblemAct [facility] History of pneumonia active 2023-11-17 ProblemAct [facility] Irritable bowel syndrome active 2011-04-29 ProblemAct [facility] Migraine headache active 2023-11-17 ProblemAct [facility] Lupus erythematosus active 2023-11-17 ProblemAct [facility] Abnormal gall bladder diagnostic imaging active 2023-11-17 ProblemAct [facility] Seasonal allergies active 2023-11-17 ProblemAct [facility] Contusion of face, initial encounter active EncounterDiagnosisAct [facility] Circulation problem active 2023-11-17 ProblemAct [facility] Adjustment disorder with anxious mood active 2023-11-17 ProblemAct [facility] Elbow injury, left, initial encounter active EncounterDiagnosisAct [facility] Cluster headaches active 2023-11-17 [facility] Vaccine Date Source Lot Number Status Tdap 10/08/2023 [facility] [id number] completed Influenza Inactivated/Split Preservative Free IM 05/06/2015 [facility] [id number] completed Influenza Inactivated/Split Preservative Free IM 03/28/2014 [facility] [id number] completed Influenza Inactivated/Split Preservative Free IM 05/15/2013 [id number] completed Typhoid Inactivated 12/05/2012 [facility] [id number] compl eted Influenza Inactivated/Split Preservative Free IM 04/29/2011 [facility] [id number] completed Pneumococcal Polysaccharide 23-Valent 04/29/2011 [facility] [id number] completed Tdap 06/23/2010 [facility] [id number] completed Influenza Inactivated/Split Preservative Free IM 05/05/2010 [facility] [id number] completed Influenza Inactivated/Split Preservative Free IM 05/28/2008 [facility] [id number] completed Influenza Inactivated/Split Preservative Free IM 07/08/2007 [facility] [id number] completed Hep A / Hep B 02/07/2004 [facility] [id number] completed Hep A / Hep B 12/08/2003 [facility] UNK completed Hep A / Hep B 07/03/2002 [facility] [id number] completed Hep A / Hep B 05/29/2002 [facility] [id number] completed Typhoid Inactivated 05/29/2002 [facility] [id number] compl eted Encounters Encounter Type Encounter Reason Primary Diagnosis Location Date Ambulatory [facility] 07/31/2024 Ambulatory Arm Pain Arm Pain [facility] 07/31/2024 Ambulatory [facility] 04/14/2024 Ambulatory Nasal Congestion Nasal Congestion [facility] 11/17/2023 Ambulatory Other Other [facility] 10/27/2023 Care Team Organization Name Specialty Phone Email Start Date End [facility] 10/28/2024 [facility] 10/28/2023 09/21/19 [facility] 10/27/2023 [facility] 10/27/2023 [facility] 12/05/2022 [facility]
--- OUTSIDE RECORDS SUMMARY | 2025-01-09 13:42 | XMS_ITS | Clinical Summary ---
Author Organization [facility] Address [address] [place] [id number] Care Team Providers Care Fundraiser Name Role Phone Enid Flannery MD Primary Care Provider Allergies Active Allergy Reactions Criticality Noted Date [...] 70 07/31/2024 4:18 PM EST Temperature 35.8 C (96.5 F) 07/31/2024 4:18 PM EST Respiratory Rate 16 07/31/2024 4:18 PM EST [...] 02/07/2004, 12/08/2003, 07/03/2002, Additional history exists Insurance [facility] PPO Care Teams Fundraiser Relationship Specialty Start Date End Date Enid Flannery MD [address] [place] [address] [place] [phone] PCP - General Internal Medicine 10/27/23
== END 2025-01-09 13:52 | disposition home or self-care (01) ==
LOC: HO.HMCFM 13:04
PROVIDERS: PCP Internal Medicine; Visit Provider Internal Medicine
DX: Z00.00 Encounter for general adult medical examination without abnormal findings (principal); E66.811 Obesity, class 1; M32.9 Systemic lupus erythematosus, unspecified; Z68.30 Body mass index [BMI] 30.0-30.9, adult; K58.9 Irritable bowel syndrome, unspecified

== ENCOUNTER 2025-01-09 13:59 | Outpatient (REF) | payer BC, SELFPAY ==
[2025-01-09 17:28] LABS: MANUAL DIFF FLAG NO
[2025-01-09 17:41] LABS: Hematocrit 39.5 % (37.0-47.0); Hemoglobin 13.0 g/dl (12.0-16.0); Imm Gran Abs Auto 0.01 X10*3/uL (0.00-0.03); Imm Gran Pct Auto 0.2 % (0.0-0.4); Lymphocytes Absolute Auto 1.8 X10*3/uL (1.2-4.9); Mean Corpuscular HGB Conc 32.9 g/dl (31.0-35.0); Mean Corpuscular Hemoglobin 30.2 pg (27.0-33.0); Mean Corpuscular Volume 91.6 fL (80.0-98.0); NRBC Abs Auto 0.000 X10*3/uL (0.0-0.012); NRBC Pct Auto 0.0 /100WBC (0.0-0.2); Platelet Count 258 X10*3/uL (160-400); Red Blood Count 4.31 X10*6/uL (4.20-5.50); White Blood Count 5.6 X10*3/uL (4.8-10.8)
[2025-01-09 17:42] LABS: Hemoglobin A1C 113.9628 umol/L; Total Hemoglobin (HGBA1C) 3452.2777 umol/L
[2025-01-09 17:52] LABS: Alanine Aminotransferase 18 U/L (0-31); Albumin Level 4.5 g/dL (3.5-5.0); Alkaline Phosphatase 67 U/L (39-117); Anion Gap 12 (12-20); Aspartate Amino Transferase 25 U/L (5-31); Blood Urea Nitrogen 15 mg/dL (9-16); Calcium 8.8 mg/dL (8.4-10.2); Carbon Dioxide 27 mmol/L (22-29); Chloride 105 mmol/L (96-108); Cholesterol 216 mg/dL (<200); Estimated Glomerular Filt Rate > 60; HDL Cholesterol 69 mg/dL (>40); Potassium 3.8 mmol/L (3.3-5.1); Sodium 140 mmol/L (135-145); Total Protein 7.4 g/dL (6.5-8.0); Triglycerides 75 mg/dL (<150)
== END 2025-01-09 14:00 | disposition home or self-care (01) ==
LOC: HO.WFDLDS 13:59
PROVIDERS: Visit Provider Internal Medicine
DX: Z13.220 Encounter for screening for lipoid disorders (principal); Z13.1 Encounter for screening for diabetes mellitus; K58.9 Irritable bowel syndrome, unspecified; M32.9 Systemic lupus erythematosus, unspecified; G43.909 Migraine, unspecified, not intractable, without status migrainosus; E06.3 Autoimmune thyroiditis
CPT/HCPCS: 36415; 80053; 80061; 83036; 85025